=== PATIENT | female | born 1980 | race Caucasian/White ===

== ENCOUNTER 2021-01-10 01:15 | Day surgery (SDC) | payer BC, SELFPAY ==
[2020-12-27 13:59] VITALS: BMI 23.3
--- NOTE | 2021-01-09 20:06 | PM.HPGS ---
History of Present Illness History of Present Illness Consent: Risks, benefits, and alternatives have been discussed and questions answered. Patient agrees to proceed with procedure. Chief complaint: hx of colon polyps Narrative: Lyric Steinberg is a 40 year old female referred for colon caceer screening. She has a hx of colon polyps. Review of Systems Review of Systems: All systems reviewed & are unremarkable except as noted in HPI and below PMFSH Social History Social History Smoking status: Never smoker Tobacco type: cigarettes Alcohol intake: never Substance use type: does not use Living arrangements: with family Spiritual care concerns: No Meds Home Medications and Allergies Home Medications Medication Instructions Recorded Confirmed Type albuterol sulfate 1 inh INHALATION PRN PRN 12/27/20 01/10/21 History escitalopram oxalate 5 mg PO DAILY 12/27/20 01/10/21 History fluticasone propionate [Flovent] 1 puff INHALATION Q12H 12/27/20 01/10/21 History ubrogepant [Ubrelvy] 50 mg PO ONCE PRN 12/27/20 01/10/21 History Allergies Allergy/AdvReac Type Severity Reaction Status Date / Time Penicillins Allergy Unknown Skin Verified 01/10/21 11:38 Reaction OTC COLD MED Allergy Unknown Rash Uncoded 01/10/21 11:38 PSEUDOEPHEDRINE HCL Allergy Unknown Rash Uncoded 01/10/21 11:38 Exam Const: General: alert Orientation/consciousness: patient oriented x3 Resp: Auscultation: clear to auscultation bilaterally Cardio: Rhythm: regular rhythm GI: GI Palp: Yes Soft to palpation and No Tenderness to palpation present (GI) Neuro: General: patient oriented x3 Assessment and Plan Assessment and plan (1) Colon cancer screening: Code(s): Z12.11 - Encounter for screening for malignant neoplasm of colon Status: Acute Assessment and Plan: Colonoscopy with possible biopsy or polypectomy or cautery or injection of substances.
[2021-01-10 11:40] VITALS: BP 113/69; PULSE 110; RESP 16; TEMP 36.7; O2SAT 99
[2021-01-10] MEDS: LACTATED RINGERS 1,000 ML 150 ML IV CONT (11:59)
--- NOTE | 2021-01-10 12:17 | P.PNAN_ITS ---
Anes - Initial Pre Proc Eval Procedure: Operation Date: 01/10/21 12:30 Proposed Procedures p Screening Colonoscopy - Toño Carver MD Date/Time: 01/10/21 12:17 Surgeon: Toño Carver MD Pre Op Diagnosis: hx of colon polyps Patient Data Age: 40 Gender: F Height: 1.55 m Weight: 55 kg Last Vital Signs Temp 36.7 C 01/10/21 11:40 Pulse 110 H 01/10/21 11:40 Resp 16 01/10/21 11:40 BP 113/69 01/10/21 11:40 Pulse Ox 99 01/10/21 11:40 Allergies Allergy/AdvReac Type Severity Reaction Status Date / Time Penicillins Allergy Unknown Skin Verified 01/10/21 11:38 Reaction OTC COLD MED Allergy Unknown Rash Uncoded 01/10/21 11:38 PSEUDOEPHEDRINE HCL Allergy Unknown Rash Uncoded 01/10/21 11:38 Home Medications Medication Instructions Recorded Confirmed Type albuterol sulfate 1 inh INHALATION PRN PRN 12/27/20 01/10/21 History escitalopram oxalate 5 mg PO DAILY 12/27/20 01/10/21 History fluticasone propionate [Flovent] 1 puff INHALATION Q12H 12/27/20 01/10/21 History ubrogepant [Ubrelvy] 50 mg PO ONCE PRN 12/27/20 01/10/21 History Patient hx anesthesia problems: none Family hx anesthesia problems: none Results Review: All pre-operative results and documents have been reviewed as part of the pre-operative evaluation. [facility] Past Medical History Medical History (Updated 01/10/21 @ 12:18 by Kingston Mullen MD) Depression Surgical History Surgical History (Updated 01/10/21 @ 12:18 by Kingston Mullen MD) H/O colonoscopy History of bunionectomy Social History Social History Smoking status: Never smoker Tobacco type: cigarettes Alcohol intake: never Substance use type: does not use Living arrangements: with family Spiritual care concerns: No Anes - Eval Final PreProcedure Day of Procedure 01/10/21 12:17 Patient weight: normal Heart: regular rate and rhythm Lungs: clear to auscultation Airway: Mallampati scale class 1 and other (braces) Neurological: alert and oriented Last oral intake: >/= 8 hours ASA classification: II Emergent: no Anesthetic plan: proceed Anesthesia type and monitoring: general GIVS and standard monitoring Results Review: All pre-operative results and documents have been reviewed as part of the pre-operative evaluation. Informed Consent: The patient's anesthetic plan and its attendant risks and benefits were discussed with the patient/family/POA. Questions were solicited and answers provided to the satisfaction of the patient/family/POA.
[2021-01-10 12:44] VITALS: BP 100/66; PULSE 89; RESP 18; O2SAT 99
[2021-01-10 12:54] VITALS: BP 106/72; PULSE 89; RESP 23; O2SAT 100
[2021-01-10 13:04] VITALS: BP 108/74; PULSE 85; RESP 17; O2SAT 100
== END 2021-01-10 13:15 | disposition home or self-care (01) ==
PROVIDERS: PCP Physician Assistant; Visit Provider Internal Medicine Gastroenterology
PROC: 0DJD8ZZ Inspection of Lower Intestinal Tract, Via Natural or Artificial Opening Endoscopic (ICD-10-PCS; CPT 45378; principal; 2021-01-10 12:30)
DX: Z12.11 Encounter for screening for malignant neoplasm of colon (principal); Z86.010 Personal history of colon polyps; K57.30 Diverticulosis of large intestine without perforation or abscess without bleeding; Z79.02 Long term (current) use of antithrombotics/antiplatelets; Z79.51 Long term (current) use of inhaled steroids; F32.9 Major depressive disorder, single episode, unspecified
CPT/HCPCS: 45378; J2704; J7120

== ENCOUNTER 2021-11-27 14:39 | Outpatient (CLI) | payer BC, SELFPAY ==
--- NOTE | ~2021-11-27 | MR_ITS ---
EXAMINATION: MR brain/brain stem wo/w con DATE: 11/27/2021 15:41 INDICATION: Headaches TECHNIQUE: Magnetic resonance imaging (MRI) of the brain and brainstem was performed without and with 12 mL Multihance intravenous contrast. Sequences included sagittal and axial T1-weighted SE, axial d iffusion-weighted FS SE, axial T2*-weighted GRE, axial T2-weighted FLAIR, and axial T2-weighted FSE. Postcontrast axial and coronal T1-weighted SE was obtained. Apparent diffusion coefficient (ADC) maps were created. COMPARISON: Head CT dated 04/24/2006 FINDINGS: There are no areas of restricted diffusion to suggest acute infarction. No intracranial hemorrhage or abnormal intracranial mass lesion. Single tiny focus of white matter T2 hyperintensity in the right parietal lobe which is within normal limits for age. There are no intraparenchymal signal abnormaliti es seen on the other pulse sequences. The ventricles are symmetric and normal in size. There are no a bnormal extra-axial fluid collections. Flow voids are seen in the cerebral arteries on the T2-weighte d sequences consistent with their expected patency. Visualized orbits and soft tissues are unremarkab le. There are no areas of abnormal enhancement on the post contrast images. IMPRESSION: 1. Single tiny focus of nonspecific white matter T2 hyperintensity in the right parietal lobe which i s within normal limits for age. No acute intracranial process. Reviewed, dictated and finalized at location A. IMPRESSION: 1. Single tiny focus of nonspecific white matter T2 hyperintensity in the right parietal lobe which is within normal limits for age. No acute intracranial pro cess.
== END 2021-11-27 14:40 ==
PROVIDERS: PCP Physician Assistant; Visit Provider Physician Assistant
DX: G44.52 New daily persistent headache (NDPH) (principal); R93.0 Abnormal findings on diagnostic imaging of skull and head, not elsewhere classified
CPT/HCPCS: 70553; A9577

== ENCOUNTER 2022-12-01 11:38 | Outpatient (NON) | payer BC, SELFPAY | END 2022-12-01 11:39 | disposition home or self-care (01) | PROVIDERS: PCP Physician Assistant; Visit Provider Nurse Practitioner | DX: L81.4 Other melanin hyperpigmentation (principal); D48.5 Neoplasm of uncertain behavior of skin | CPT/HCPCS: 88305 ==

== ENCOUNTER 2023-03-08 17:32 | Emergency (ER) | payer BC, SELFPAY ==
--- NOTE | ~2023-03-08 | XR_ITS ---
EXAMINATION: XR chest 2V DATE: 03/08/2023 18:39 INDICATION: Shortness of breath TECHNIQUE: frontal and lateral views of the chest were obtained. COMPARISON: Chest radiograph dated 12/21/2004 FINDINGS: The lungs are clear with no focal airspace opacities, pulmonary edema, pleural effusion or pneumothor ax. The cardiomediastinal silhouette is normal. Visualized bones and soft tissues are unremarkable. IMPRESSION: 1. No acute cardiopulmonary disease. Reviewed, dictated and finalized at location A. ATRIC NURSE PRACTITIONER
--- NOTE | 2023-03-08 17:42 | ED.GENADULT ---
HPI - General Adult General Chief complaint: Shortness of Breath/Dyspnea <Rosa Meeks June, - Last Filed: 03/08/23 17:47> Stated complaint: sent from urgent care - SOB <Rosa Meeks June - Last Filed: 03/08/23 17:47> Time Seen by Provider: 03/08/23 22:23 <Rosa Meeks June, - Last Filed: 03/08/23 17:47> Source: patient <Owen Murphy PA-C - Last Filed: 03/09/23 02:14> Mode of arrival: ambulatory <Owen Murphy PA-C - Last Filed: 03/09/23 02:14> Limitations: no limitations <Owen Murphy PA-C - Last Filed: 03/09/23 02:14> History of Present Illness HPI narrative: Lyric Steinberg is a 43 y/o female with PMHx of Asthma who presents with reports of having a URI near [place] and was placed on Steroids and clindamycin, she states she felt better but then the last few days she has had some increased SOB,unable to get a full breath, increased SOB with exertion and some heavy scracthy pain to her mid chest for a few days that improves with her inhaler but comes right back. She states she has had to use her inhaler about 5 times a day and still feeling SOB. <Rosa Meeks June, Last Filed: 03/08/23 17:47> Related Data Home medications: Home Medications Medication Instructions Recorded Confirmed albuterol sulfate 90 mcg/actuation 1 inh inhalation PRN PRN Shortness 12/27/20 01/10/21 aerosol inhaler Of Breath escitalopram oxalate 5 mg tablet 5 mg PO DAILY 12/27/20 01/10/21 fluticasone propionate 110 1 puff inhalation Q12H 12/27/20 01/10/21 mcg/actuation HFA aerosol inhaler ubrogepant 50 mg tablet (Ubrelvy) 50 mg PO ONCE PRN Migraine Headache 12/27/20 01/10/21 <Rosa Meeks June, - Last Filed: 03/08/23 17:47> Allergies/adverse reactions: Allergies Allergy/AdvReac Type Severity Reaction Status Date / Time Penicillins Allergy Unknown Skin Verified 01/10/21 11:38 Reaction OTC COLD MED Allergy Unknown Rash Uncoded 01/10/21 11:38 PSEUDOEPHEDRINE HCL Allergy Unknown Rash Uncoded 01/10/21 11:38 <Roas ReguloMay June, - Last Filed: 03/08/23 17:47> Review of Systems Review of Systems: All systems as dictated in HPI <Owen Murphy PA-C - Last Filed: 03/09/23 02:14> PMFSH Past Medical History Medical History: Medical History (Updated 03/09/23 @ 00:06 by Kelsie Contreras) Depression <Rosa Meeks June, - Last Filed: 03/08/23 17:47> Surgical History Surgical History: Surgical History (Updated 01/10/21 @ 12:18 by Kingston Mullen MD) H/O colonoscopy History of bunionectomy <Rosa J. June, - Last Filed: 03/08/23 17:47> Social History Social History: Social History Smoking status: Never smoker Tobacco type: cigarettes Alcohol intake: never Substance use type: does not use Living arrangements: with family Spiritual care concerns: No <Rosa Constantino June, Last Filed: 03/08/23 17:47> Exam Narrative: GENERAL: Well-appearing, well-nourished, and in no acute distress. HEAD: Normocephalic, atraumatic. EYES: PERRLA and EOMI. ENT: Nares clear, no rhinorrhea or epistaxis. Mucous membranes moist. Oropharynx without tonsillar hypertrophy exudate or other lesions. NECK: Supple. No adenopathy or masses. CHEST: No respiratory distress. Clear to auscultation. No wheezes rales or rhonchi HEART: Regular rate and rhythm. No murmur heard. Normal peripheral pulses. ABDOMEN: Soft, nontender, nondistended, normal active bowel sounds. MSK: Normal range of motion. No edema. SKIN: Warm, dry, no rash. NEURO: Alert and oriented x3. No focal deficits. PSYCH: Normal mood and affect. <Owen Murphy PA-C - Last Filed: 03/09/23 02:14> Course Vital Signs Vital signs: Vital Signs Temperature 97.7 F 03/08/23 17:58 Pulse Rate 78 03/08/23 17:58 Respiratory Rate 15 03/08/23 17:58 Blood Pressure 114/75 03/08/23 17:58 Pulse Oximetry 100 03/08/23 17:58 Oxy
--- NOTE | 2023-03-08 17:47 | ECG_ITS ---
Measurements Intervals [place] Rate: 60 P: 31 AR: 127 QRS: 52 QRSD: 71 T: 52 QT: 368 QTc: 369 Interpretive Statements SINUS RHYTHM LOW QRS VOLTAGE IN PRECORDIAL LEADS CANNOT RULE OUT SEPTAL INFARCT, AGE INDETERMINATE ABNORMAL ECG NO PREVIOUS ECG AVAILABLE FOR COMPARISON Electronically Signed On 03-09-2023 5:53:18 [employer]BER [employer]ZER by Michael Tellez D.O.
[2023-03-08 17:58] VITALS: BP 114/75; PULSE 78; RESP 15; TEMP 36.5; O2SAT 100
[2023-03-08 21:29] LABS: Basophils Percent Auto 0.7 % (0.2-1.2); Eosinophils Absolute Auto 0.1 K/mm3 (0-0.3); Eosinophils Percent Auto 2.2 % (0-4.4); Hematocrit 39.7 % (37.0-47.0); Hemoglobin 12.6 g/dL (12.0-15.0); Immature Granulocyte Absolute 0.03 K/mm3 (0.00-0.031); Immature Granulocyte Percent A 0.5 % (0-0.5); Lymphocytes Absolute Auto 1.91 K/mm3 (0.9-3.2); Mean Corpuscular HGB Conc 31.7 g/dl (32-36); Mean Corpuscular Hemoglobin 29.3 pg (26-34); Mean Corpuscular Volume 92.3 fl (80-100); Mean Platelet Volume 10.4 fl (7.4-10.4); Monocytes Absolute Auto 0.5 K/mm3 (0.1-0.6); Monocytes Percent Auto 8.5 % (2.6-8.5); Neutrophils Absolute Auto 3.2 K/mm3 (1.3-6.7); Neutrophils Percent Auto 55.1 % (45.5-73.1); Platelet Count Result 253 k/mm3 (150-375); White Blood Count 5.8 K/mm3 (4.5-10.0)
[2023-03-08 21:39] LABS: Magnesium 1.9 mg/dL (1.6-2.3)
[2023-03-08 21:39] LABS: Appearance Urine Clear (Clear); Bilirubin Urine Negative (Negative); Blood Urine Negative (Negative); Color Urine Yellow (Yellow); Glucose Urine UA Negative (Negative); Ketones Urine Trace mg/dL (Negative); Leukocyte Esterase Ur Negative LEU/UL (Negative); Nitrate Urine Negative (Negative); Protein Urine Negative (Negative); Specific Grav Ur 1.013 (1.001-1.035); Urobilinogen Urine 0.2 mg/dL (<2.0)
[2023-03-08 21:43] LABS: Alanine Aminotransferase 17 U/L (6-35); Albumin Level 4.5 g/dL (3.5-5.1); Alkaline Phosphatase 43 U/L (38-126); Anion Gap 8 mmol/L (8-16); Aspartate Amino Transferase 21 U/L (14-36); Bilirubin,Total 0.6 mg/dL (0.2-1.3); Blood Urea Nitrogen 13 mg/dL (7-17); Calcium 9.4 mg/dL (8.4-10.2); Carbon Dioxide 26 mmol/L (22-30); Chloride 102 mmol/L (98-107); Estimated CRCL calculation 76 ml/min; Estimated Glomerular Filt Rate > 60; Glucose 82 mg/dL (65-110); Potassium 3.8 mmol/L (3.4-5.0); Sodium 136 mmol/L (137-145)
[2023-03-08 21:51] LABS: Add Urine Microscopic? NO
[2023-03-08 21:51] LABS: NT Pro B Type Natriuretic Pept 35 pg/mL (19.9-100); Troponin I < 0.012 ng/mL (0.000-0.034)
[2023-03-08 22:05] LABS: Influenza A QL RT-PCR Negative (Negative); Influenza B QL RT-PCR Negative (Negative); RSV RNA, RT-PCR Negative (Negative); SARS-CoV-2 RNA PCR Negative (Negative)
[2023-03-08 22:12] LABS: D Dimer 0.29 ug/mL (<0.48)
[2023-03-08 22:18] VITALS: BP 120/71; PULSE 70; RESP 18; O2SAT 98
--- NOTE | 2023-03-08 22:59 | PC.NURSE ---
Ambulation assessment with oxygen was successful. O2 sats 98-99%. Pt did not complain of SOB/pain. EDP made aware.
[2023-03-08 23:00] VITALS: BP 128/81; PULSE 70; RESP 20; O2SAT 99
== END 2023-03-08 23:05 | disposition home or self-care (01) ==
PROVIDERS: Nurse Practitioner Family; Emergency Provider Physician Assistant; PCP Physician Assistant
DX: R06.02 Shortness of breath (principal); Z20.822 Contact with and (suspected) exposure to COVID-19; F32.A Depression, unspecified; R94.31 Abnormal electrocardiogram [ECG] [EKG]
CPT/HCPCS: 36415; 71046; 80053; 81003; 81025; 83605; 83735; 83880; 84484; 85025; 85380; 87637; 93005; 99284

== ENCOUNTER 2023-11-06 18:01 | Emergency (ER) | payer OTHER, SELFPAY ==
[2023-11-06 18:17] VITALS: BP 122/71; PULSE 96; RESP 16; TEMP 36.5; O2SAT 100
--- NOTE | 2023-11-06 18:20 | ED.FEMALEGU ---
HPI - Female Genitourinary General Chief complaint: Urogenital-Female Stated complaint: UTI SYMPTOMS Time Seen by Provider: 11/06/23 18:20 Source: patient, RN notes reviewed and old records reviewed Mode of arrival: ambulatory Limitations: no limitations History of Present Illness HPI Narrative: 43-year-old female presents to the [facility] with urinary symptoms. Patient reports that since this morning has had progressively worsening urinary symptoms. Reports frequency, urgency, burning. Patient also reports suprapubic discomfort to more of a burning sensation Denies any nausea vomiting. Denies fevers. Denies any generalized abdominal pain. No CVA tenderness Onset (ago): hour(s) Related Data Home Medications Medication Instructions Recorded Confirmed albuterol sulfate 90 mcg/actuation 1 inh inhalation PRN PRN Shortness 12/27/20 07/30/23 aerosol inhaler Of Breath levonorgestrel 17.5 mcg/24 hr (up 1 device intrauterine ONCE 07/30/23 07/30/23 to 5 yrs) 19.5mg intrauterine device (Kyleena) Allergies Allergy/AdvReac Type Severity Reaction Status Date / Time Penicillins Allergy Unknown Skin Verified 07/30/23 10:15 Reaction OTC COLD MED Allergy Unknown Rash Uncoded 07/30/23 10:15 PSEUDOEPHEDRINE HCL Allergy Unknown Rash Uncoded 07/30/23 10:15 Review of Systems Review of Systems: All systems reviewed & are unremarkable except as noted in HPI and below Constitutional: Constitutional: Reports no additional constitutional complaints Eyes: Eyes: Reports no additional eye complaints ENT: Reports system reviewed and no additional complaints, except as documented Cardiovascular: Cardiovascular: Reports no additional cardiovascular complaints, Denies chest pain and Denies dyspnea Respiratory: Respiratory: Reports no additional respiratory complaints, Denies chest congestion, Denies cough and Denies dyspnea Gastrointestinal: Gastrointestinal: Reports no additional gastrointestinal complaints, Denies abdominal pain, Denies nausea and Denies vomiting Genitourinary: Genitourinary: Reports as per HPI Musculoskeletal: Musculoskeletal: Reports no additional musculoskeletal complaints Integumentary/Breasts: Skin/Breast: Reports system reviewed and no additional complaints, except as docu Neurologic: Reports system reviewed and no additional complaints, except as documented Psychiatric: Psychiatric: Reports no additional psychiatric complaints Allergic/Immunologic: Allergic/Immunologic: Reports no additional allergic/immunologic complaints PMFSH Past Medical History Medical History Asthma Depression Screening mammogram for breast cancer Surgical History Surgical History H/O colonoscopy History of bunionectomy Family History Family History Other No problems noted. Mother Heart disease Social History Social History Smoking status: Never smoker Alcohol intake: current Substance use type: does not use Do You Feel Safe in your Home?: Yes Lack of Transportation: No Lack of Food: Never True Current Housing: I Have Housing Concerned About Future Housing: No Difficulty Paying Gas/Electric Bills: No Difficulty Paying for Meds: No Currently Unemployed: No Education: Associate Degree Difficulty w/ Childcare or Family Care: No Living arrangements: with family Spiritual care concerns: No Comments At the time of my signature, I reviewed and agree with the nursing past medical, surgical, social, and family history. There is no relevant family history pertinent to the patient complaint. Exam Const: General: cooperative, healthy appearing, comfortable, no acute distress, well developed, alert and well nourished Nutritional Appearance: well nourished [place]
[2023-11-06 18:28] LABS: EDUAAPPEAR Clots; EDUABILI 2+ (Negative); EDUABLOOD 3+ (Negative); EDUACOLOR1 Dark; EDUAGLUCOSE Negative (Negative); EDUAKETONE 1+ (Negative); EDUALEUKO 3+ (Negative); EDUANITRATE Positive (Negative); EDUAPH 5.5; EDUAPROTEIN 3+ (Negative); EDUASPGRAVITY 1.025
== END 2023-11-06 18:38 | disposition home or self-care (01) ==
PROVIDERS: Emergency Provider Nurse Practitioner; PCP Physician Assistant
DX: N39.0 Urinary tract infection, site not specified (principal); B96.89 Other specified bacterial agents as the cause of diseases classified elsewhere; J45.909 Unspecified asthma, uncomplicated
CPT/HCPCS: 81003; 87077; 87086; 87088; 87186; 99213; G0463

== ENCOUNTER 2024-01-05 09:04 | Outpatient (CLI) | payer OTHER, SELFPAY ==
--- NOTE | ~2024-01-05 | XR_ITS ---
[id number] Ordering provider: Markell Tavera, DC CCST History: . No injury neck pain with left arm tingling for 3 weeks . Comparison: None. FINDINGS: VERTEBRAL BODIES: Normal height and alignment. No visible fracture or subluxation. The dens is intact . DISK SPACES: Well maintained. PARASPINOUS SOFT TISSUES: No prevertebral soft tissue swelling. IMPRESSION: No acute osseous abnormality cervical spine. Reviewed, dictated and finalized at location A. CHER LARD
--- NOTE | ~2024-01-05 | XR_ITS ---
3 VIEWS LUMBAR SPINE Ordering provider: Markell Tavera, DC CCST History: . Headache, neck pain, back pain no injury . Comparison: None. FINDINGS: VERTEBRAL BODIES: No visible fracture or subluxation. Mild levoscoliosis which may be positional. DISK SPACES: Normal. Facet joint disease at the level of L5-S1. SOFT TISSUES: Normal. IMPRESSION: No acute osseous abnormality lumbar spine. Reviewed, dictated and finalized at location A. O PRINT SPECIALIST
--- NOTE | ~2024-01-05 | XR_ITS ---
3 VIEWS THORACIC SPINE Ordering provider: Markell Tavera, DC CCST History: . Headache, neck pain, back pain no injury . Comparison: None. FINDINGS: VERTEBRAL BODIES: Normal height and alignment. No visible fracture or subluxation. DISK SPACES: Normal. SOFT TISSUES: Normal. IMPRESSION: No acute osseous abnormality of the thoracic spine. Reviewed, dictated and finalized at location A. NESS CENTER ATTENDANT
== END 2024-01-05 09:05 | disposition home or self-care (01) ==
PROVIDERS: PCP Chiropractor; Visit Provider Chiropractor
DX: R51.9 Headache, unspecified (principal); M54.2 Cervicalgia; M54.50 Low back pain, unspecified
CPT/HCPCS: 72040; 72070; 72100

== ENCOUNTER 2024-09-22 11:16 | Outpatient (CLI) | payer OTHER, SELFPAY ==
--- OUTSIDE RECORDS SUMMARY | 2024-09-22 11:22 | XMS_ITS | Data Portability ---
Author Organization [facility], Main Office Address [address] [place] [address] Assessment Encounter Date Assessment Date Assessment LastModified by Organization Details LastModified Time 10/16/2022 10/16/2022 colonoscopy 2020. repeat 5 years [email or web address] Not available 10/16/2022 09:38:09 Plan of Treatment Reminders Order Date Submit Date Provider Last Modified By Organization Details Last Modified Time Details Appointments None recorded . Lab CMP, serum or plasma 023 10/17/19 23 [email or web address] [facility], [address] [place] [address], [address], 3 14:10:27 CBC w/ auto diff 023 10/17/19 23 [email or web address] [facility], [address] [place] [address], [address], 3 14:10:27 TSH + free T4, serum 023 10/17/19 23 [email or web address] [facility], [address] [place] [address], [address], 3 14:10:27 lipid panel, serum 023 10/17/19 23 [email or web address] [facility], [address] [place] [address], [address], 3 14:10:26 HbA1c (hemoglo bin A1c), blood 023 10/17/19 23 [email or web address] [facility], [address] [place] [address], [address], 3 14:10:27 Referral None recorded . Procedures None recorded . Surgeries None recorded . Imaging None recorded . Medication Orders None recorded . Patient TargetsNo targets recorded. Patient InstructionsNo instructions recorded. Reason for Referral None Reported. Results Created Date Observation Date Name Description Value Unit Range Abnormal Flag Note LastModifiedBy Organization Detail LastModifiedTime 11/29/1911/29/2020 HEMOG LOBIN A1C hemoglobin A1C 5.4 % 4.8-5. 6 Predi abete s: 5.7 - 6.4 Diabe anne-marie: >6.4 Glyce pepper contr ol for adult s with diabe anne-marie: <7.0 Not Available [facility] ([facility]) [address] [facility], [place], [address], 11/29/2020 11:37:56 11/29/19 21 11/29/2020 LIPID PANEL W/ CHOL/ HDL RATIO cholesterol, total 174 mg/dL 100-19 9 Not Available [facility] ([facility]) [address] [place], [address], 11/29/2020 11:37:56 11/29/19 21 11/29/2020 LIPID PANEL W/ CHOL/ HDL RATIO triglyceride s 43 mg/dL 0-149 Not Available [facility] ([facility]) [address] [place], [address], 11/29/2020 11:37:56 11/29/19 21 11/29/2020 LIPID PANEL W/ CHOL/ HDL RATIO HDL cholesterol 64 mg/dL >39 Not Available [facility] ([facility]) [address] [place], [address], 11/29/2020 11:37:56 11/29/19 21 11/29/2020 LIPID PANEL W/ CHOL/ HDL RATIO VLDL cholesterol kristyn 9 mg/dL 5-40 Not Available [facility] ([facility]) [address] [place], [address], 11/29/2020 11:37:56 11/29/19 21 11/29/2020 LIPID PANEL W/ CHOL/ HDL RATIO LDL chol calc ([facility]) 101 mg/dL 0-99 above high normal Not Available [facility] ([facility]) [address] [place], [address], 11/29/2020 11:37:56 11/29/19 21 11/29/2020 LIPID PANEL W/ CHOL/ HDL RATIO comment: cloth bleaching range back tender Not Available [facility] ([facility]) [address] [place], [address], 11/29/2020 11:37:56 11/29/19 21 11/29/2020 LIPID PANEL W/ CHOL/ HDL RATIO T. chol/HDL ratio 2.7 ratio 0.0-4. 4 T. Chol/ HDL Ratio Men Women 1/2 Avg.R isk 3.4 3.3 Avg.R isk 5.0 4.4 2X Avg.R isk 9.6 7.1 3X Avg.R isk 23.4 11.0 Not Available [facility] ([facility]) [address] [place], [address], 11/29/2020 11:37:56 11/29/19 21 11/29/2020 UA WITH CULTU RE REFLE X specific gravity 1.026 1.005- 1.030 Not Available [facility] ([facility]) [address] [place], [address], 11/29/2020 11:37:55 11/29/19 21 11/29/2020 UA WITH CULTU RE REFLE X pH 6.5 5.0-7. 5 Not Available [facility] ([facility]) [address] [place], [address], 11/29/2020 11:37:55 11/29/19 21 11/29/2020 UA WITH CULTU RE REFLE X urine-color yellow yellow Not Available [facility] ([facility]) [address] [place], [address], 11/29/2020 11:37:55 11/29/19 21 11/29/2020 UA WITH CULTU RE REFLE X appearance clear clear Not Available [facility] ([facility]) [address] [facility], [place], [address], 11/29/2020 11:37:55 11/29/19 21 11/29/2020 UA WITH CULTU RE REFLE X WBC esterase negati ve negati ve Not Available [facility] ([facility]) [address] [facility], [place], [address], 11/29/2020 11:37:55 11/29/19 21 11/29/2020 UA WITH CULTU RE REFLE X protein negati ve negati ve/tra ce Not Available [facility] ([facility]) [address] [facility], [place], [address], 11/29/2020 11:37:55 11/29/19 21 11/29/2020 UA WITH CULTU RE REFLE X glucose negati ve negati ve Not Available [facility] ([facility]) [address] [facility], [place], [address], 11/29/2020 11:37:55 11/29/19 21 11/29/2020 UA WITH CULTU RE REFLE X ketones negati ve negati ve Not Available [facility] ([facility]) [address] [facility], [place], [address], 11/29/2020 11:37:55 11/29/19 21 11/29/2020 UA WITH CULTU RE REFLE X occult blood negati ve negati ve Not Available [facility] ([facility]) [address] [facility], [place], [address], 11/29/2020 11:37:55 11/29/19 21 11/29/2020 UA WITH CULTU RE REFLE X bilirubin negati ve negati ve Not Available [facility] ([facility]) [address] [facility], [place], [address], 11/29/2020 11:37:55 11/29/19 21 11/29/2020 UA WITH CULTU RE REFLE X urobilinogen ,semi-qn 0.2 mg/dL 0.2-1. 0 Not Available [facility] ([facility]) [address] [facility], [place], [address], 11/29/2020 11:37:55 11/29/19 21 11/29/2020 UA WITH CULTU RE REFLE X nitrite, urine negati ve negati ve Not Available [facility] ([facility]) [address] [facility], [place], [address], 11/29/2020 11:37:55 11/29/19 21 11/29/2020 UA WITH CULTU RE REFLE X microscopic examination commen t Micro scopi c not indic ated and not perfo rmed. Not Available [facility] ([facility]) [address] [facility], [place], [address], 11/29/2020 11:37:55 11/29/19 21 11/29/2020 UA WITH CULTU RE REFLE X urinalysis reflex commen t This speci men will not refle x to a Urine Cultu re. Not Available [facility] ([facility]) [address] [facility], [place], [address], 11/29/2020 11:37:55 11/29/19 21 11/29/2020 CBC WITH DIFFE RENTI AL/PL ATELE T WBC 7.1 x10e3 /uL 3.4-10 .8 Not Available [facility] ([facility]) [address] [facility], [place], [address], 11/29/2020 11:37:55 11/29/19 21 11/29/2020 CBC WITH DIFFE RENTI AL/PL ATELE T RBC 4.24 x10e6 /uL 3.77-5 .28 Not Available [facility] ([facility]) [address] [facility], [place], [address], 11/29/2020 11:37:55 11/29/19 21 11/29/2020 CBC WITH DIFFE RENTI AL/PL ATELE T hemoglobin 12.5 g/dL 11.1-1 5.9 Not Available [facility] ([facility]) [address] [facility], [place], [address], 11/29/2020 11:37:55 11/29/19 21 11/29/2020 CBC WITH DIFFE RENTI AL/PL ATELE T hematocrit 38.8 % 34.0-4 6.6 Not Available [facility] ([facility]) [address] [facility], [place], [address], 11/29/2020 11:37:55 11/29/19 21 11/29/2020 CBC WITH DIFFE RENTI AL/PL ATELE T MCV 92 fL 79-97 Not Available [facility] ([facility]) [address] [facility], [place], [address], 11/29/2020 11:37:55 11/29/19 21 11/29/2020 CBC WITH DIFFE RENTI AL/PL ATELE T MCH 29.5 pg 26.6-3 3.0 Not Available [facility] ([facility]) [address] [facility], [place], [address], 11/29/2020 11:37:55 11/29/19 21 11/29/2020 CBC WITH DIFFE RENTI AL/PL ATELE T MCHC 32.2 g/dL 31.5-3 5.7 Not Available [facility] ([facility]) [address] [place], [address], 11/29/2020 11:37:55 11/29/19 21 11/29/2020 CBC WITH DIFFE RENTI AL/PL ATELE T RDW 12.4 % 11.7-1 5.4 Not Available [facility] ([facility]) [address] [facility], [place], [address], 11/29/2020 11:37:55 11/29/19 21 11/29/2020 CBC WITH DIFFE RENTI AL/PL ATELE T platelets 201 x10e3 /uL 150-45 0 Not Available [facility] ([facility]) [address] [facility], [place], [address], 11/29/2020 11:37:55 11/29/19 21 11/29/2020 CBC WITH DIFFE RENTI AL/PL ATELE T neutrophils 71 % not estab. Not Available [facility] ([facility]) [address] [facility], [place], [address], 11/29/2020 11:37:55 11/29/19 21 11/29/2020 CBC WITH DIFFE RENTI AL/PL ATELE T lymphs 17 % not estab. Not Available [facility] ([facility]) [address] [facility], [place], [address], 11/29/2020 11:37:55 11/29/19 21 11/29/2020 CBC WITH DIFFE RENTI AL/PL ATELE T monocytes 8 % not estab. Not Available [facility] ([facility]) [address] [facility], [place], [address], 11/29/2020 11:37:55 11/29/19 21 11/29/2020 CBC WITH DIFFE RENTI AL/PL ATELE T eos 3 % not estab. Not Available [facility] ([facility]) [address] [facility], [place], [address], 11/29/2020 11:37:55 11/29/19 21 11/29/2020 CBC WITH DIFFE RENTI AL/PL ATELE T basos 1 % not estab. Not Available [facility] ([facility]) [address] [facility], [place], [address], 11/29/2020 11:37:55 11/29/19 21 11/29/2020 CBC WITH DIFFE RENTI AL/PL ATELE T immature cells cloth bleaching range back tender Not Available [facility] ([facility]) [address] [place], [address], 11/29/2020 11:37:55 11/29/19 21 11/29/2020 CBC WITH DIFFE RENTI AL/PL ATELE T neutrophils (absolute) 5.1 x10e3 /uL 1.4-7. 0 Not Available [facility] ([facility]) [address] [place], [address], 11/29/2020 11:37:55 11/29/19 21 11/29/2020 CBC WITH DIFFE RENTI AL/PL ATELE T lymphs (absolute) 1.2 x10e3 /uL 0.7-3. 1 Not Available [facility] ([facility]) [address] [place], [address], 11/29/2020 11:37:55 11/29/19 21 11/29/2020 CBC WITH DIFFE RENTI AL/PL ATELE T monocytes(ab solute) 0.5 x10e3 /uL 0.1-0. 9 Not Available [facility] ([facility]) [address] [place], [address], 11/29/2020 11:37:55 11/29/19 21 11/29/2020 CBC WITH DIFFE RENTI AL/PL ATELE T eos (absolute) 0.2 x10e3 /uL 0.0-0. 4 Not Available [facility] ([facility]) [address] [place], [address], 11/29/2020 11:37:55 11/29/19 21 11/29/2020 CBC WITH DIFFE RENTI AL/PL ATELE T baso (absolute) 0.0 x10e3 /uL 0.0-0. 2 Not Available [facility] ([facility]) [address] [facility], [place], [address], 11/29/2020 11:37:55 11/29/19 21 11/29/2020 CBC WITH DIFFE RENTI AL/PL ATELE T immature granulocytes 0 % not estab. Not Available [facility] ([facility]) [address] [facility], [place], [address], 11/29/2020 11:37:55 11/29/19 21 11/29/2020 CBC WITH DIFFE RENTI AL/PL ATELE T immature grans (abs) 0.0 x10e3 /uL 0.0-0. 1 Not Available [facility] ([facility]) [address] [facility], [place], [address], 11/29/2020 11:37:55 11/29/19 21 11/29/2020 CBC WITH DIFFE RENTI AL/PL ATELE T NRBC cloth bleaching range back tender Not Available [facility] ([facility]) [address] [facility], [place], [address], 11/29/2020 11:37:55 11/29/19 21 11/29/2020 CBC WITH DIFFE RENTI AL/PL ATELE T hematology comments: cloth bleaching range back tender Not Available [facility] ([facility]) [address] [place], [address], 11/29/2020 11:37:55 11/29/19 21 11/29/2020 TSH+F REE T4 TSH 2.740 uIU/m L 0.450- 4.500 Not Available [facility] ([facility]) [address] [place], [address], 11/29/2020 11:37:54 11/29/19 21 11/29/2020 TSH+F REE T4 T4,free(dire ct) 1.15 NG/dL 0.82-1 .77 Not Available [facility] ([facility]) [address] [place], [address], 11/29/2020 11:37:54 11/29/19 21 11/29/2020 CMP14 +EGFR glucose 90 mg/dL 65-99 Not Available [facility] ([facility]) [address] [facility], [place], [address], 11/29/2020 11:37:53 11/29/19 21 11/29/2020 CMP14 +EGFR BUN 19 mg/dL 6-24 Not Available [facility] ([facility]) [address] [facility], [place], [address], 11/29/2020 11:37:53 11/29/19 21 11/29/2020 CMP14 +EGFR creatinine 0.74 mg/dL 0.57-1 .00 Not Available [facility] ([facility]) [address] [facility], [place], [address], 11/29/2020 11:37:53 11/29/19 21 11/29/2020 CMP14 +EGFR eGFR if nonafricn AM 100 mL/mi n/1.7 3 >59 Not Available [facility] ([facility]) [address] [facility], [place], [address], 11/29/2020 11:37:53 11/29/19 21 11/29/2020 CMP14 +EGFR eGFR if africn AM 116 mL/mi n/1.7 3 >59 Lab kylah curre ntly repor ts eGFR in compl iance with the curre nt recom menda tions of the [facility] ation . [facility] will updat e repor ting as new guide lines are publi shed from the NKF-A SN Task force . Not Available [facility] ([facility]) [address] [facility], [place], [address], 11/29/2020 11:37:53 11/29/19 21 11/29/2020 CMP14 +EGFR BUN/creatini ne ratio 26 9-23 above high normal Not Available [facility] ([facility]) [address] [facility], [place], [address], 11/29/2020 11:37:53 11/29/19 21 11/29/2020 CMP14 +EGFR sodium 142 mmol/ L 134-14 4 Not Available [facility] ([facility]) [address] [facility], [place], [address], 11/29/2020 11:37:53 11/29/19 21 11/29/2020 CMP14 +EGFR potassium 4.4 mmol/ L 3.5-5. 2 Not Available [facility] ([facility]) [address] [place], [address], 11/29/2020 11:37:53 11/29/19 21 11/29/2020 CMP14 +EGFR chloride 107 mmol/ L 96-106 above high normal Not Available [facility] ([facility]) [address] [place], [address], 11/29/2020 11:37:53 11/29/19 21 11/29/2020 CMP14 +EGFR carbon dioxide, total 24 mmol/ L 20-29 Not Available [facility] ([facility]) [address] [facility], [place], [address], 11/29/2020 11:37:53 11/29/19 21 11/29/2020 CMP14 +EGFR calcium 9.2 mg/dL 8.7-10 .2 Not Available [facility] ([facility]) [address] [place], [address], 11/29/2020 11:37:53 11/29/19 21 11/29/2020 CMP14 +EGFR protein, total 6.6 g/dL 6.0-8. 5 Not Available [facility] ([facility]) [address] [place], [address], 11/29/2020 11:37:53 11/29/19 21 11/29/2020 CMP14 +EGFR albumin 4.3 g/dL 3.8-4. 8 Not Available [facility] ([facility]) [address] [place], [address], 11/29/2020 11:37:53 11/29/19 21 11/29/2020 CMP14 +EGFR globulin, total 2.3 g/dL 1.5-4. 5 Not Available [facility] ([facility]) [address] [place], [address], 11/29/2020 11:37:53 11/29/19 21 11/29/2020 CMP14 +EGFR A/G ratio 1.9 1.2-2. 2 Not Available [facility] ([facility]) [address] [place], [address], 11/29/2020 11:37:53 11/29/19 21 11/29/2020 CMP14 +EGFR bilirubin, total 0.4 mg/dL 0.0-1. 2 Not Available [facility] ([facility]) [address] [place], [address], 11/29/2020 11:37:53 11/29/19 21 11/29/2020 CMP14 +EGFR alkaline phosphatase 37 IU/L 44-121 below low normal Ple ase note refer ence inter delaney walton e Not Available [facility] ([facility]) [address] [place], [address], 11/29/2020 11:37:53 11/29/19 21 11/29/2020 CMP14 +EGFR AST (SGOT) 14 IU/L 0-40 Not Available [facility] ([facility]) [address] [place], [address], 11/29/2020 11:37:53 11/29/19 21 11/29/2020 CMP14 +EGFR ALT (SGPT) 10 IU/L 0-32 Not Available [facility] ([facility]) [address] [place], [address], 11/29/2020 11:37:53 01/11/20 21 01/10/2021 colon oscop y proce dure (PROC ) No observ ation record ed. [id number] Toño Carver MD [address], [place], [address], 04/29/2022 17:35:56 11/29/19 22 11/27/2021 MRI, brain , w/wo contr ast No observ ation record ed. [id number] [facility] [address], [place], [address], 04/29/2022 17:35:56 03/10/19 24 03/08/2023 XR, chest , 2 view No observ ation record ed. [address], [place], [address], 03/10/2023 15:54:34 Result Notes None recorded. Problems Name Problem SNOMED Code Status Onset Date Resolution Date Notes Provider Name and Address Organization Details Recorded Time Asthma 658834648 Active Not Available [facility] 3 17:33:31 Wound of skin 975946293 Active Not Available [facility] 3 17:33:31 Cough 44191861 Active Not Available [facility] 3 17:33:32 Upper respirator y infection 59398146 Active Not Available [facility] 3 17:33:32 Psoriasis 3546877 Active Not Available [facility] 3 17:33:32 Acute exacerbati on of chronic obstructiv e pulmonary disease 009510209 Active 2021 Not Available [facility] 3 17:33:31 Reactive airway disease 711778533350 Active 2021 Not Available [facility] 3 17:33:32 Migraine 46472351 Active 2021 Not Available [facility] 3 17:33:32 Mild major depression 29584614 Active 08/11/ 2022 Not Available [facility] 3 17:33:32 New daily persistent headache 6951993301441 05 Active 2021 Not Available [facility] 3 17:33:31 Problem Notes None recorded. Procedures Surgical History Date Name Laterality Status Provider Name and Address Organization Details Recorded Time 06/16/19 17 other completed Not Available [facility] 3 17:31:32 01/19/20 15 Date of Last Colonoscopy completed Not Available [facility] 04/29/2022 17:31:30 01/19/20 15 Colposcopy completed Not Available [facility] 3 17:31:32 other completed Not Available [facility] 03/2022 17:31:32 Imaging Results None recorded. Procedure Notes None recorded. Medical Equipment None Reported. Allergies Allergen ID Allergen Name Allergen Category Reaction Reaction Severity Criticality Documentation Date Start Date Code Code System Note Provider Name and Address Organization Details Recorded Time 33550 Sudafed medicatio n rash severe Not available 04/29/202247414 2 RxNorm Not Available [facility] 3 17:35:50 11014 Product containin g penicilli n (product) medicatio n Not available Not available Not available 04/29/2022 37071 8001 SNOMED was young at react ion Not Available [facility] 3 17:35:50 Medications Name Sig Start Date Stop Date Status Note LastModified by Organization Details LastModified Time cyclobenzap rine 10 mg tablet active Not Available Not Available Not Available ketoconazol e 2 % shampoo SHAMPOO WITH A SMALL AMOUNT TO THE AFFECTED AREA EVERY OTHER DAY active Not Available Not Available No t Available azithromyci n 250 mg tablet 10/09 completed Not Available Not Available Not Available clarithromy adrien 500 mg tablet TK 1 T PO Q 12 H 07/10 completed Not Available Not Available Not Available ondansetron HCl 4 mg tablet 07/10 completed Not Available Not Available Not Available clindamycin HCl 150 mg capsule TAKE ONE CAPSULE BY MOUTH FOUR TIMES DAILY UNTIL ALL TAKEN 10/15 completed Not Available Not Available Not Available valacyclovi r 500 mg tablet active Not Available Not Available Not Available triamcinolo ne acetonide 0.1 % topical cream applys twice a day 07/12 completed Not Available Not Available Not Available neomycin-po lymyxin-dex ameth 3.5 mg/mL-10,00 0 unit/mL-0.1 % eye drops active Not Available Not Available Not Available triamcinolo ne acetonide 0.1 % topical ointment APPLY SMALL AMOUNT TOPICALLY TO THE AFFECTED AREA TWICE DAILY. DO NOT USE MORE THAN 2 WEEKS active Not Available Not Available No t Available Advair Diskus 250 mcg-50 mcg/dose powder for inhalation Inhale 1 puff twice a day by inhalatio n route. 2022 active Not Available Not Available Not Avai lable mupirocin calcium 2 % topical cream applys twice a day. 07/12 completed Not Available Not Available Not Available azelastine 137 mcg (0.1 %) nasal spray USE 2 SPRAYS IN EACH NOSTRIL TWICE DAILY active Not Available Not Available No t Available methylpredn isolone 4 mg tablets in a dose pack FOLLOW PACKAGE DIRECTION S 10/15 completed Not Available Not Available Not Available albuterol sulfate HFA 90 mcg/actuati on aerosol inhaler INHALE 2 PUFFS BY MOUTH EVERY 4 TO 6 HOURS NEEDED active Not Available Not Available No t Available doxycycline hyclate 100 mg tablet TAKE 1 TABLET BY MOUTH TWICE DAILY UNTIL ALL TAKEN 10/15 completed Not Available Not Available Not Available Lexapro 10 mg tablet Take 1 tablet every day by oral route. 2022 active Not Available Not Available Not Avai lable Vigamox 0.5 % eye drops active Not Available Not Available Not Available escitalopra m 5 mg tablet TAKE 1 TABLET BY MOUTH EVERY DAY IN THE EVENING 10/10 completed Not Available Not Available Not Available Zyrtec takes daily 2014 active Not Available Not Available Not Avai lable Virtussin AC 10 mg-100 mg/5 mL oral liquid TK 10 ML PO Q 4 H PRN 07/10 completed Not Available Not Available Not Available Enstilar 0.005 %-0.064 % topical foam active Not Available Not Available Not Available Ubrelvy active Not Available Not Avail able Not Available Nurtec ODT 75 mg disintegrat ing tablet TAKE 1 TABLET BY MOUTH AT ONSET OF MIGRAINE. MAX OF 1 TABLET IN 24 HOURS 10/16 completed Not Available Not Available Not Available Qulipta 60 mg tablet TAKE 1 TABLET BY MOUTH EVERY DAY active Not Available Not Available No t Available Vitals Date Recorded Body mass index (BMI) Body height Oxygen saturation Oxygen saturation in Arterial blood by Pulse oximetry Heart rate Body temperature Body weight Systolic And Diastolic Provider Name and Address Organization Details Last Updated DateTime 1 24.1 kg/m2 152.4 cm 99 % 99 % 86 /min 98 [degF] 87826.0 2 g 110/60 mm[Hg] Not Available [facility] 3 17:32:35 Date Recorded Body mass index (BMI) Body height Oxygen saturation Oxygen saturation in Arterial blood by Pulse oximetry Heart rate Body temperature Body weight Systolic And Diastolic Provider Name and Address Organization Details Last Updated DateTime 2 26.6 kg/m2 152.4 cm 98 % 98 % 77 /min 98 [degF] 38882.5 6 g 112/70 mm[Hg] Not Available [facility] 3 17:32:35 Date Recorded Systolic And Diastolic Provider Name and Address Organization Details Last Updated DateTime 10/16/2022 90/60 mm[Hg] JAD Mcconnell [address] [facility] [place] [address], [place], [address], [email or web address] 10/16/2022 10:05:53 Date Recorded Body height Body temperature Body mass index (BMI) Body weight Respiratory rate Oxygen saturation Oxygen saturation in Arterial blood by Pulse oximetry Heart rate Systolic And Diastolic Provider Name and Address Organization Details Last Updated DateTime 3 152.4 cm 98 [degF] 25.4 kg/m2 06580.0 1 g 16 /min 97 % 97 % 96 /min 118/70 mm[Hg] LUIS Funez [email or web address] 09:30:51 Date Recorded Body mass index (BMI) Body height Oxygen saturation Oxygen saturation in Arterial blood by Pulse oximetry Heart rate Body temperature Body weight Systolic And Diastolic Provider Name and Address Organization Details Last Updated DateTime 1 24.7 kg/m2 152.4 cm 98 % 98 % 63 /min 98.1 [degF] 30817.7 9 g 110/70 mm[Hg] Not Available [facility] 17:32:35 Social History Question Answer Notes LastModified by Organizat ion Details LastModified Time Tobacco Smoking Status Never Smoker Not Available [facility] 04/29/2022 17:31:16 What Is Your Level Of Caffeine Consumption? Moderate Coffee [id number] Information not available 04/29/2022 How Much Tobacco Do You Chew? None [id number] Information not available 04/29/2022 In The 14 Days Before Symptom Onset, Have You Had Close Contact With A Laboratory-confirm ed COVID-19 While That Case Was Ill? No [id number] Information not available 04/29/2022 In The 14 Days Before Symptom Onset, Have You Had Close Contact With A Person Who Is Under Investigation For COVID-19 While That Person Was Ill? No [id number] Information not available 04/29/2022 What Type Of Diet Are You Following? REGULAR [id number] Information not available 04/29/2022 Which Illicit Or Recreational Drugs Have You Used? None [id number] Information not available 04/29/2022 Have There Been Any Changes To Your Family Or Social Situation? No [id number] Information not available 04/29/2022 Do You Use Insect Repellent Routinely? No [id number] Information not available 04/29/2022 What Was The Date Of Your Most Recent Tobacco Screening? 10/10/2021 [id number] Information not available 04/29/2022 What Is Your Relationship Status? Single [id number].[id number] 9439 Information not available 04/29/2022 Do You Use Your Seat Belt Or Car Seat Routinely? Yes MIGRATION.[id number] Information not available 04/29/2022 Do You Have Smoke And Carbon Monoxide Detectors In Your Home? Yes MIGRATION.433335 7098 Information not available 04/29/2022 How Much Tobacco Do You Smoke? No MIGRATION.[id number] 8153 Information not available 04/29/2022 Do You Use Sunscreen Routinely? Yes MIGRATION.521817 6417 Information not available 04/29/2022 Have You Recently Traveled Abroad? No MIGRATION.425354 4279 Information not available 04/29/2022 Do You Have Any Dietary Restrictions? No MIGRATION.986895 6392 Information not available 04/29/2022 Sex: Unknown Functional Status Question Answer Note LastModified by Organizat ion Details LastModified Time Do you use any illicit or recreational drugs? No MIGRATION.[id number] Information not available 04/29/2022 Do you or have you ever used any other forms of tobacco or nicotine? No MIGRATION.632034 5365 Information not available 04/29/2022 What is your level of alcohol consumption? None MIGRATION.239927 3574 Information not available 04/29/2022 Do you or have you ever used smokeless tobacco? Never used smokeless tobacco MIGRATION.619893 3714 Information not available 04/29/2022 Are you currently employed? 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 Never used electronic cigarettes MIGRATION.673001 4230 Information not available 04/29/2022 What is your exercise level? Moderate MIGRATION.059319 4000 Information not available 04/29/2022 Mental Status None recorded. Family History Relationship Description Onset Age of this Age Resolved Age Notes LastModified by Organization Details LastModified Time Mother Rheumatoid arthritis MIGRATION.505 [id number] Not available 04/29/2022 17:31:33 Unspecified Relation Malignant tumor of colon MIGRATION.433 [id number] Not available 04/29/2022 17:31:33 Unspecified Relation Alzheimer's disease MIGRATION.797 [id number] Not available 04/29/2022 17:31:33 Unspecified Relation Malignant tumor of stomach MIGRATION.078 [id number] Not available 04/29/2022 17:31:33 Unspecified Relation Malignant tumor of intestine MIGRATION.549 [id number] Not available 04/29/2022 17:31:33 Maternal Grandmother Malignant tumor of breast MIGRATION.855 [id number] Not available 04/29/2022 17:31:33 Medical History Condition Response HEADACHES/MIGRAINES Y VARICOSITIES Y ANXIETY DISORDER Y SKIN PROBLEMS Y DEPRESSION (INCLUDING POST ) Y BACK / NECK PROBLEMS Y Gynecological History Statement/Question Response Menses Monthly Y Date of Last Pap Date of Last Mammogram 02/12/2017 Current Control Method None Date of Last Colonoscopy 01/18/2015 Date of LMP 06/28/2020 Sexually Active? Y Obstetrics History GPAL:G 3 P 0 0 0 3 Type Value Living 3 Total 3 Immunizations Vaccine Type Date Status Note Provider Nam e and Address Organization Details Recorded Time HBIG 0 completed Not Available [facility] 04/29/2022 17:35:41 TST-PPD intradermal 0 completed Not Available [facility] 04/29/2022 17:35:41 Past Encounters Encounter ID Performer Location Encounter Start Date Encounter Closed Date Diagnosis/Indication Diagnosis SNOMED-CT Code Diagnosis ICD10 Code Diagnosis Note [id number] JAD Mcconnell [facility] [place] [address] [place] [address] 07/12/2020 00:00:00 07/12/2020 11:28:06 [id number] JAD Mcconnell [facility] [place] [address] [place] [address] 12/20/2020 00:00:00 12/29/2020 21:48:15 [id number] Henry Lou MD [facility] [place] [address] [place] [address] 10/10/2021 00:00:00 10/24/2021 17:00:29 [id number] JAD Mcconnell [facility] [place] [address] [place] [address] 10/16/2022 09:23:23 10/16/2022 10:13:57 Adult health examination 975686435 Z00.00 well exam completed. . 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 Health Concerns Section Related Observation LastModified by Organization Detai ls LastModified Time None Recorded Concern Status LastModified by Organization Details LastModified Time None Recorded Advance Directives Directive None Recorded Payers Insurance Date Sequence Insurance Name Policy Number Policy Valencia Covered Member ID Valencia Member ID Guarantor Name 10/30/2022 1 [employer] [id number] Lyric Steinberg [id number] Lyric Steinberg Notes Date Note Type Note Provider Name and Address Organization Details Recorded Time 10/16/2022 text/html Anxiety/Depressi onRepo rted by PatientHPIFor quality, patient reportssymptoms worse during the day. For severity, patient reportsdenies suicidal ideations,able to maintain relationships, anddoes not interfere with activities of daily living. For duration, patient reportssymptoms lasting over 2 weeks. For onset/timing, patient reportsstill present. For context, patient reportsno major life stressors. For associated symptoms, patient reportsdenies homicidal ideations,no significant weight gain,no significant weight loss,no visual/auditory hallucinations,no delusions, andno shortness of breath. Generic HPI TemplateReported by PatientHPIFor location, (l side of head). For quality, (headaches). For severity, (more frequent). For alleviating factors, (qulipta).She says she is having more frequent headaches for the past 6 months. JAD Mcconnell [address] [place] [address], [facility] [address], [place], [address], [facility] 10/29/2022 20:29:41 OBGyn Episode No OBEpisode recorded.
--- OUTSIDE RECORDS SUMMARY | 2024-09-22 11:22 | XMS_ITS | Data Portability ---
Author Organization [facility] in Office Address [address] [place] [address] Assessment Encounter Date Assessment Date Assessment LastModified by Organization Details LastModified Time 08/31/2024 08/31/2024 I spent 60 minutes of [id number] counselling and care coordination time with the patient. This includes reviewing medical records (medical, surgical, family and social history); updating medication and allergy information in the electronic health record; and ordering labs, medications, and education materials to continue patient care. Not available 08/31/2024 22:32:42 Plan of Treatment Reminders Order Date Submit Date Provider Last Modified By Organization Details Last Modified Time Details Appointments [id number] 2024 02:00P Thaddeus lynne NP Not available Not available Not available Lab None recorded. Referral None recorded. Procedures None recorded. Surgeries None recorded. Imaging None recorded. Medication Orders Prometriu m 100 mg capsule 2024 025 [facility] #[id number], [address], [place], [id number], 08/31/2024 18:00:26 estradiol 0.5 mg/0.5 gram (0.1 %) transderm al gel packet 2024 025 [facility] #[id number], [address], [place], [id number], 08/31/2024 18:00:29 Patient TargetsNo targets recorded. Patient Instructions Encounter Date Encounter Id Patient Instructions Last Modified By Organization Details Last Modified Time 08/31/2024 [id number] Brain Fog & Cognition [facility] Not available 08/31/2024 18:00:21 [facility] Not available 08/31/2024 18:00:21 Any requested follow-up visits are listed below in the Plan of Care section. Go directly to the [facility] flight crew scheduler at [email or web address] to book a time. To schedule or modify your visit, access the [facility] portal here: [email or web address] Not available 08/31/2024 22:35:04 Brain fog: Sympt oms and Recommendations It is very common for women to experience brain fog and memory lapses during perimenopause and menopause, often caused by the changing levels of hormones at midlife and sleep disturbances resulting from other menopausal symptoms. Estrogen is neuroprotective, meaning it has an important role in the healthy regulation of brain processes such as cognition, body temperature, sexual behavior, and anxiety and depression. Accordingly, studies have shown that lower levels of estradiol (a form of estrogen) is associated with diminished cognitive performance. In addition, the night sweats and hot flashes (vasomotor symptoms) many women experience lead to poorer sleep quality and less sleep, which naturally makes it more difficult to focus during the day. Exhaustion can also increase stress, which also interferes with concentration and memory. Hormone replacement therapy (HRT) helps to mitigate these symptoms and, in turn, combat brain fog and slower cognition. And there are many other ways to keep your mind and memory sharp during this transitional period. Research supports these relatively simple lifestyle shifts: - Practice mindfulness techniques to reduce stress. Activities such as meditation, slow breathing, and yoga can help you remain present and focus on your daily tasks. - Regular exercise can reduce stress, and is also thought to increase the size of the hippocampus, the part of your brain responsible for memory and learning. - Focus on sleep hygiene, so you get more and better rest and feel less brain fog. Some basics: avoid caffeine late in the day, put down screens an hour before bed, establish a consistent bedtime routine (wake up and go to sleep at the same time every day, set up some calming wind-down rituals), and maintain a cool, calm, and quiet environment for sleep. You mentioned brain fog as a symptom this is a nonclinical term for many different things that can be happening as part of menopause and aging. This may include things like slower recall or difficulty concentrating and is not progressive. Optimizing sleep, minimizing hot flashes, optimizing nutrition, and minimizing stress and fatigue can help with this symptom. Dementia, however, is not part of usual menopause or aging. Alzheimers dementia is a degenerative brain disease that does affect some women, and does benefit from early detection and treatment. Please see a review of common warning signs at: https://www.alz.org /alzheimers-dementi a/10_signs. If you have any of these more concerning symptoms of dementia, we recommend that you get an in person assessment. Your primary care doctor can help you get officially tested, often through a referral to a neurologist. As always, let us know if you need assistance in obtaining a complete assessment. Today we reviewed options for treating common symptoms of menopause. These options include hormonal medications, non hormonal medications, integrative therapies and lifestyle modifications. Menopause symptoms vary from woman to woman. Some women get no symptoms, but others have many. Intensity and duration also vary and can last on average 5-10 years. HRT may help with many menopausal symptoms. It is FDA approved for the treatment of hot flashes, vaginal symptoms, osteoporosis, and for those in early or premature menopause. HRT is associated with relief of symptoms and improvement in bone health. When started close to the age of menopause, HRT reduces cardiovascular risk and has potential benefits for cognitive health. Here are the latest recommendations from the Menopause Society: https://menopause.o rg/patient-educatio n/menopause-topics/ hormone-therapy Hormone therapy most often involves the combination of estrogen and progestogen. As with any drug there are some potential risks associated with hormone therapy. There are concerns of associated health risks with HRT including risks related to breast cancer, uterine cancer, gallbladder disease, and dementia. Many of these concerns are related to older types of hormones that are no longer recommended today and some of these concerns differ depending on the component of hormones (i.e., estrogen vs progestogen) and the mode of delivery. Some studies have suggested that some types of HRT may increase the risk of heart attack, stroke, and blood clots. If you develop chest pain, difficulty breathing, or symptoms suggestive of a stroke please seek care immediately. Today we reviewed your personal history including specific risks and benefits of hormone therapy for you. Based on this shared decision making, we recommend HRT to you as a reasonable and helpful therapy. If you have additional questions related to health risks associated with HRT, please discuss with your clinician. Please know that HRT requires fine-tuning and an individualized approach. We ll plan to adjust your therapy if needed to address your symptoms. We will meet in 4-6 weeks to check in about your new regimen. Please reach out if you need to meet sooner. Dear Lyric, It was great to see you today! Below is a summary of the plan we decided upon together: Menopause and night sweats - You will start estradiol 0.5 mg gel each morning to replace low estrogen. - Take Prometrium 100 mg nightly to protect the uterus and improve sleep. - Expect improvement in hot flashes and sleep within the first few weeks. Sleep concerns - Progesterone often enhances deep sleep; give it several nights to take full effect. - Follow good sleep hygiene such as a consistent bedtime and a cool bedroom. Brain fog - Better sleep and balanced hormones should help clear mental haze; we will reassess at the next visit. Anxiety - Continue Lexapro 10 mg daily; once sleep stabilizes we can review if any adjustment is needed. Family colon cancer risk - We will arrange genetic testing to learn more about inherited cancer risks; the care team will contact you with local lab details. Follow up - Your next telehealth appointment is set for Thursday, October 03, 2024 at 4:00 PM. - Use the patient portal any time if questions come up or pharmacy issues arise. If you have any questions or experience any new symptoms, please do not hesitate to reach out to our office. Sincerely, Carmelina Elder NP Today we reviewed options for treating common symptoms of menopause. These options include hormonal medications, non hormonal medications, integrative therapies and lifestyle modifications. Menopause symptoms vary from woman to woman. Some women get no symptoms, but others have many. Intensity and duration also vary and can last on average 5-10 years. HRT may help with many menopausal symptoms. It is FDA approved for the treatment of hot flashes, vaginal symptoms, osteoporosis, and for those in early or premature menopause. HRT is associated with relief of symptoms and improvement in bone health. When started close to the age of menopause, HRT reduces cardiovascular risk and has potential benefits for cognitive health. Here are the latest recommendations from the Menopause Society: https://menopause.o rg/patient-educatio n/menopause-topics/ hormone-therapy Hormone therapy most often involves the combination of estrogen and progestogen. As with any drug there are some potential risks associated with hormone therapy. There are concerns of associated health risks with HRT including risks related to breast cancer, uterine cancer, gallbladder disease, and dementia. Many of these concerns are related to older types of hormones that are no longer recommended today and some of these concerns differ depending on the component of hormones (i.e., estrogen vs progestogen) and the mode of delivery. Some studies have suggested that some types of HRT may increase the risk of heart attack, stroke, and blood clots. If you develop chest pain, difficulty breathing, or symptoms suggestive of a stroke please seek care immediately. Today we reviewed your personal history including specific risks and benefits of hormone therapy for you. Based on this shared decision making, we recommend HRT to you as a reasonable and helpful therapy. If you have additional questions related to health risks associated with HRT, please discuss with your clinician. Please know that HRT requires fine-tuning and an individualized approach. We ll plan to adjust your therapy if needed to address your symptoms. We will meet in 4-6 weeks to check in about your new regimen. Please reach out if you need to meet sooner. Not available 08/31/2024 22:37:36 Reason for Referral None Reported. Problems Name Problem SNOMED Code Status Onset Date Resolution Date Notes Provider Name and Address Organization Details Recorded Time Cognitive function finding 550540554 Active 2024 Carmelina Elder , [place] [address] [place], [address] , [facility] 17:30:29 Menopausal symptom 40976868 Active 2024 Not Available [facility] 08:13:45 Difficulty sleeping 943174094 Active 2024 Not Available [facility] 08:13:45 Health education given 213892306 Active 2024 Not Available [facility] 08:13:45 Generalized anxiety disorder 66283537 Active 2024 Not Available [facility] 5 08:13:45 Problem Notes None recorded. Procedures Surgical History Date Name Laterality Status Provider Name and Address Organization Details Recorded Time 4 Date of Last [place] [address] [facility] , [facility] 08/31/2024 17:26:29 1 Date of Last [place]ammogram [place] [address] [address], [facility] 08/31/2024 17:26:29 0 Date of [place] [address] [facility] [address], [facility] 08/31/2024 17:26:29 Imaging Results None recorded. Procedure Notes None recorded. Medical Equipment None Reported. Allergies Allergen ID Allergen Name Allergen Category Reaction Reaction Severity Criticality Documentation Date Start Date Code Code System Note Provider Name and Address Organization Details Recorded Time 871139 pseudoeph edrine Not available rash Not available [facility] 08/31/20242023 8896 [place] [address] [place], [place], , [facility] 5 17:27:59 688276 Product containin g penicilli n (product) medicatio n Not available Not available Not available 08/31/2024 43759 8001 SNOMED Not Available [email or web address] External Data Service - prod 16:39:53 375366 Sudafed medicatio n rash severe Not available 08/31/202444607 2 RxNorm Not Available [email or web address] External Data Service - prod 16:39:55 Medications Name Sig Start Date Stop Date Status Note LastModified by Organization Details LastModified Time Prometrium 100 mg capsule Take 1 capsule every day by oral route at bedtime for 30 days. 2024 active Not Available Not Available Not Avai lable Lexapro 10 mg tablet active Not Available Not Available No t Available Zyrtec active Not Available Not Availa ble Not Available estradiol 0.5 mg/0.5 gram (0.1 %) transdermal gel packet Apply 1 packet every day by transderm al route for 30 days. 2024 active Not Available Not Available Not Avai lable Pro Comfort Alcohol Pads 08/31 completed Not Available Not Available Not Available Skyrizi active Not Available Not Avail able Not Available Ubrelvy 100 mg tablet active Not Available Not Available No t Available Vitals Date Recorded Body height Body mass index (BMI) Body weight Provider Name and Address Organization Details Last Updated DateTime 08/31/2024 154.94 cm 22.7 kg/m2 68042.08 g Carmelina Elder, [place] [address] [place], [address], [facility] 08/31/2024 17:27:32 Social History None recorded. Functional Status Question Answer Note LastModified by Organizat ion Details LastModified Time What is your level of alcohol consumption? Occasional Information not available 08/31/2024 Mental Status None recorded. Family History Relationship Description Onset Age of this Age Resolved Age Notes LastModified by Organization Details LastModified Time Mother Heart disease Not available 04/2024 17:26:28 Maternal Grandfather Malignant tumor of colon Not available 04/2024 17:26:28 Medical History Condition Response Pancreatitis N Allergies (Food, seasonal, environmental ) N Other N Colon Cancer N Breast Cancer N Blood Transfusion N Drug/Latex Allergies/Reactions N Lung Cancer N Dermatologic Disorders N Lung Disease N Defects or Inherited Disease N Breast Problem N Gestational Diabetes N Uterine Cancer N Hematologic disorders N Anesthesia Complications N History of STI N Deep Vein Thrombosis N Polycystic ovary syndrome N Anxiety Disorder Y Autoimmune disease N Arthritis N Polyps N Infertility N Cervical Cancer N Acid Reflux (GERD) N History of abnormal pap N Cancer N Rectal Cancer N Varicosities N Stroke N Neurologic/Epilepsy N Endometriosis N Factor 5 Leiden Deficiency N High Cholesterol N Liver Disease N Fibromyalgia N Headaches N Kidney Disease N Heart Problems N Gallbladder Disease N Migraines N Thyroid Problems N Kidney or Bladder Problems N GI Problems N Acne N Eating Disorder N Anemia N Art (IVF or FET) N Bladder Suspension/Sling N Psychiatric Illness N Ovarian Cancer N Lymphoma Cancer N Diabetes N Pulmonary (TB, Asthma) N Hepatitis/Liver Disease N Eczema N Abuse/Domestic Violence N Heart Attack N Trauma/Violence N Seizures N Protein C and/or S Deficiency N Depression/ depression N Thyroid Cancer N Heart Disease N Pulmonary Embolism N Pre-Eclampsia N Hypertension N Osteoporosis N Thrombophilias N Gynecological History Statement/Question Response Date of Last Colonoscopy 07/31/2019 Date of Last Mammogram 01/29/2021 Date of LMP 07/30/2024 Menses Monthly Y Date of Last Pap Smear 07/31/2023 Current Control Method IUD Approximate Hormone Replacement Therapy No Obstetrics History GPAL:G 3 P 0 0 0 3 Type Value Living 3 Total 3 Past Encounters Encounter ID Performer Location Encounter Start Date Encounter Closed Date Diagnosis/Indication Diagnosis SNOMED-CT Code Diagnosis ICD10 Code Diagnosis Note [id number] Carmelina Elder NP Main Office [address] [place] [address] 08/31/2024 16:39:28 09/01/2024 04:40:27 Menopausal symptom 15693181 N95.1 - Diagnosis: Menopausal and female climacteri c states- Assessment : Estradiol deficiency causing vasomotor and sleep symptoms- Plan: Discussed topical estrogen options, progestero ne requiremen ts, benefits in symptom control and bone, heart, and brain health; patient elected to start therapy- Medication s supplement s: Estradiol 0.5 mg transderma l gel daily; Prometrium 100 mg at bedtime- Follow up: Four-week telehealth visit scheduled for 03 October 2024 at 4:00 PM The patient is experienci ng significan t symptoms related to hormonal changes that impact their quality of life and ability to function profession ally and/or personally . We reviewed lifestyle modificati ons, integrativ e therapies, hormonal options as well as other medication s used to treat common menopausal symptoms. Pt was informed that, as with any drug, there are some potential risks associated with HRT. We discussed that some types of HRT may increase the risk of heart attack, stroke, and blood clots. Patient is counseled on concerning signs and symptoms and instructed to immediatel y seek care if these develop. We discussed potential health risks that may be associated with HRT including risks related to breast cancer, uterine cancer, gallbladde r disease, dementia and others. Many of these concerns are related to older types of hormones that are no longer recommende d today and some of these concerns differ depending on the component of hormones (estrogen vs progestero ne) and the mode of delivery. After review of the potential benefits of HRT, the alternativ es and the risks of therapy this patient prefers a trial of HRT. Based on this shared decision making HRT therapy will be offered. Cognitive function finding 130826432 R41.9 undefined - Diagnosis: Unspecifie d symptoms and signs involving cognitive functions and awareness - Assessment : Patient reports brain fog likely secondary to hormonal changes and insufficie nt sleep - Plan: Address underlying hormonal imbalance and sleep; reassess cognitive complaints at follow-up - Medication s supplement s: As above - Lifestyle measures: Encourage adequate hydration and regular physical activity - Follow up: Four weeks Difficulty sleeping 3013 51006 G47.9 undefined - Diagnosis: Sleep disorder, unspecifie d - Assessment : Sleep fragmentat ion related to perimenopa use and anxiety - Plan: Initiation of progestero ne expected to improve sleep; monitor response at follow-up - Medication s supplement s: Prometrium as above - Lifestyle measures: Maintain regular bedtime routine and limit late caffeine - Follow up: Four weeks Health edu cation given 995880200 N95.9 undefined - Diagnosis: Unspecifie d menopausal and perimenopa usal disorder - Assessment : Symptom complex overlaps with above but coded per visit summary - Plan: Education provided regarding natural history of perimenopa use and benefits of hormone therapy - Medication s supplement s: As above - Follow up: Four weeks Family his tory of cancer of colon 725399110 Z80.0 -genetic screening - Diagnosis: Family history of malignant neoplasm of digestive organs- Assessment : Significan t colon cancer in maternal lineage- Plan: Recommende d genetic testing for hereditary cancer syndromes; patient agreeable- Ordered diagnostic tests: Referral for multigene hereditary cancer panel blood test- Referrals: will locate some Genetics clinic near patient s residence- Follow up: Review results when available Generalize d anxiety disorder 89760616 F41.1 undefined- Diagnosis: Generalize d anxiety disorder- Assessment : Ongoing anxiety partially controlled with Lexapro- Plan: Continue Lexapro 10 mg daily; evaluate need for dose adjustment after sleep improves- Medication s supplement s: Continue Lexapro 10 mg daily- Lifestyle measures: Practice relaxation techniques at bedtime- Follow up: Four weeks -reassess reina scores next visit Health Concerns Section Related Observation LastModified by Organization Detai ls LastModified Time None Recorded Concern Status LastModified by Organization Details LastModified Time None Recorded Advance Directives Directive None Recorded Payers Insurance Date Sequence Insurance Name Policy Number Policy Valencia Covered Member ID Valencia Member ID Guarantor Name 08/28/2024 1 ARACELIS [id number] Lyric Steinberg [id number] Lyric Steinberg 08/28/2024 1 MINERVAJAQUI Roxy STONE (PPO) Lyric Steinberg [id number] Lyric Steinberg Notes Date Note Type Note Provider Name and Address Organization Details Recorded Time 08/31/2024 text/html ROS as noted in the HPI Virtual Visit AttestationModality: VideoProvider Location: Home Patient Location[place] Home Patient [place]: [place] Complaint: Two primary symptoms: Brain fog, Not sleeping Interested in discussing: Hormone replacement therapy (HRT) Vitals: Height: 61 Weight: 120 Period Changes: Irregular and flow changes MRS - Symptom Severity: Hot Flashes and Night Sweats: None Moodiness, Anxiety and Depression: Moderate Weight and Body Changes: Mild Trouble Sleeping: Moderate Period Problems: Moderate Painful Sex, Vaginal Dryness and Libido: None Brain Fog and Memory: Moderate Skin and Hair Changes: Mild Joint Pain, Bone Loss and Fracture Risk: Patient is trying to get or is currently : No Dementia/Cognitive Decline Concern: NoChief complaint: Sleep problems and brain fog History of present illness hpi: Female presenting with sleep problems, fatigue, and other perimenopausal symptoms. Sleep difficulties - Reports months-long trouble initiating sleep, frequent awakenings, and restless nights - Feels exhausted daily, requiring after-work naps to function through the evening - Notes night sweats that leave her soaked, necessitating removal of blankets mid-sleep Night sweats and temperature dysregulation - Goes to bed feeling cold, bundles up, then wakes drenched in sweat and overheated - During daytime generally feels cold even in warm weather and wears leggings in ninety-degree temperatures Anxiety and fatigue - Recently restarted Lexapro which has helped anxiety somewhat - Still experiences significant anxiety at bedtime contributing to sleep onset delay - Persistent daytime fatigue attributed to poor nocturnal rest Skin changes (acne) - New-onset chin and jawline acne despite no prior history of acne Screening history: Colonoscopy surveillance every 3 to 5 years for family history of colon cancer; last interval not specified Current medications: Lexapro 10 mg orally once daily Ubrelvy 100 mg orally as needed for migraine Zyrtec 10 mg orally once daily Albuterol inhaler 90 mcg per actuation, inhale as needed Skyrizi 150 mg injection per registered nurse post partum schedule for psoriasis Estradiol 0.5 mg transdermal gel applied once daily Prometrium 100 mg orally at bedtime Allergies: Penicillin rash Pseudoephedrine rash Sudafed severe rash Vital signs: Height 5 feet 1 inch, weight 120 pounds, BMI 22.7 Carmelina Elder, [facility] [address] [place], [address], [facility] 09/10/2024 15:10:41 OBGyn Episode No OBEpisode recorded.
--- OUTSIDE RECORDS SUMMARY | 2024-09-22 11:22 | XMS_ITS | Clinical Summary ---
Author Organization [facility] Address [address] [place] [id number] Care Team Providers Care Data Modeling Specialist Name Role Phone Unavailable Primary Care Provider Unavailabl e Social History Tobacco Use Types Packs/Day Years Used Date Smoking Tobacco: Never Assessed Comments Unknown Sex and Gender Information Value Date Recorded Sex Assigned at Not on file Legal Sex Female 5:50 PM CDT Gender Identity Not on file Sexual Orientation Not on file Plan of Treatment Health Maintenance Due Date Last Done Comments Cervical Cancer Screening Pa p Smear (Age 30 to 64) Every 3 Years 1978 Colorectal Cancer Screening Colonoscopy (10 Years) 1978 Annual Physical 1981 Hepatitis C 02/12/1996 DTaP, Tdap and Td Vaccines ( 1 - Tdap) 1997 Hepatitis B Vaccines (1 of 3 - 19+ 3-dose series) 1997 Cervical Cancer Screening Pa p with HPV Testing (Age 30 to 64) Every 5 Years 02/12/2008 Cervical Cancer Screening with HPV 02/12/2008 Mammogram Screening 2018 COVID-19 Vaccine (2023-2 5 season) 2023 Meningococcal B Vaccine Aged Out No l onger eligible based on patient's age to complete this topic Meningococcal Vaccine Aged Out No mao mitesh eligible based on patient's age to complete this topic Pneumococcal Vaccine: Pediat rics (0 to 5 Years) and At-Risk Patients (6 to 49 Years) Aged Out No longer eligible b ased on patient's age to complete this topic RSV Immunizations Under 20 Months Aged Out No longer eligible based on patient's age to complete this topic
--- OUTSIDE RECORDS SUMMARY | 2024-09-22 11:22 | XMS_ITS | Data Portability ---
Author Organization [facility] Deric Whittington Address [address] [place] [address] Care Team Providers Care Marker Delivery Name Role Phone MARIESLAVA EDMONDSON Primary Care Provider Unavailab le Assessment No assessment recorded. Plan of Treatment Reminders Order Date Submit Date Provider Last Modified By Organization Details Last Modified Time Details Appointments None recorded. Lab CMP, serum or plasma 2024 [facility]25 [email or web address], [address], [place], [address], 5 10:06:37 CBC w/ auto diff 2024 025 [email or web address], [address], [place], [address], 5 10:06:37 lipid panel, serum 2024 025 [email or web address], [address], [place], [address], 5 10:06:37 cobalamin and folate panel, serum 2024 025 [email or web address], [address], [place], [address], 5 10:06:38 vitamin D, 25-hydroxy , total, serum 2024 025 [email or web address], [address], [place], [address], 10:06:38 TSH + free T4, serum 2024 [email or web address], [address], [place], [address], 10:06:38 HbA1c (hemoglobi n A1c), blood 2024 [email or web address], [address], [place], [address], 10:06:37 Referral None recorded. Procedures colonoscop y screening (PROC) 2024 [email or web address] [facility], [address], [address], [place], [address], 12:55:48 Surgeries None recorded. Imaging MRI, cervical spine, w/o contrast 2024 [facility], [address] [facility], [address], [place], [address], 17:12:21 Medication Orders escitalopr am 10 mg tablet 2024 [id number], [address], [place], [place], [id number], 12:55:47 Patient TargetsNo targets recorded. Patient Instructions Encounter Date Encounter Id Patient Instructions Last Modified By Organization Details Last Modified Time 07/14/2024 [id number] neck: exercises [email or web address] Not available 07/14/2024 13:03:30 Reason for Referral None Reported. Problems Name Problem SNOMED Code Status Onset Date Resolution Date Notes Provider Name and Address Organization Details Recorded Time Body mass index 20-24 - normal 001975874 Active 2024 Joan James MA null, [place] - [facility] 12:15:22 Positive screening for depression on PHQ-9 (Patient Health Questionnai re 9) 9774943312563 00 Active 2024 JAD Mcconnell Attn: Lima bracnh,[address] [place] [address], [address] [place] [address] 2, [facility] 5 13:05:13 Neck pain 33518255 Active 2024 JAD Mcconnell Attn: Lima branch,[address] [place], [place], [address] [place] [address] 2, [facility] 5 13:05:14 History of polyp of colon 305703354 Active 2024 JAD Mcconnell Attn: [place] branch,[address] [place], [place], [address] [place] [address] 2, [facility] 5 13:05:15 Fatigue 10156189 Active 2024 JAD Mcconnell Attn: Isabelljer branch,[address] [place], [place], [address] [place] [address] 2, [facility] 5 13:05:19 Long-term current use of drug therapy 791197551 Active 2024 JAD Mcconnell Attn: Isabelljer branch,[address] [place], [place], [address] [place] [address] 2, [facility] 5 13:05:21 Generalized anxiety disorder 82240507 Active 2024 JAD Mcconnell Attn: Isabelljer branch,[address] [place], [place], [address] [place] [address] 2, [facility] 5 13:05:24 Problem Notes None recorded. Procedures Surgical History Date Name Laterality Status Provider Name and Address Organization Details Recorded Time 4 excision of vein completed Joan James MA [facility] 07/14/2024 12:17:03 Imaging Results None recorded. Procedure Notes None recorded. Medical Equipment None Reported. Allergies Allergen ID Allergen Name Allergen Category Reaction Reaction Severity Criticality Documentation Date Start Date Code Code System Note Provider Name and Address Organization Details Recorded Time 18991007 Product containin g penicilli n (product) medicatio n Not available Not available Not available 07/14/2024 28213 8001 SNOMED YAS Stewart, [facility] 12:13:55 Medications Name Sig Start Date Stop Date Status Note LastModified by Organization Details LastModified Time azithromyci n 250 mg tablet TAKE 2 TABLETS BY MOUTH FOR 1 DAY THEN TAKE 1 TABLET BY MOUTH DAILY FOR 4 DAYS active Not Available Not Available No t Available sulfamethox azole 800 mg-trimetho prim 160 mg tablet TAKE 1 TABLET BY MOUTH TWICE DAILY UNTIL ALL TAKEN 07/14 completed Not Available Not Available Not Available escitalopra m 10 mg tablet TAKE 1 TABLET BY MOUTH EVERY DAY active Not Available Not Available No t Available ProAir HFA 90 mcg/actuati on aerosol inhaler Inhale 2 puffs every 4 hours by inhalatio n route. active Not Available Not Available No t Available Skyrizi 150 mg/mL subcutaneou s pen injector Inject by subcutane ous route. active Not Available Not Available No t Available Vitals Date Recorded Respiratory rate Provider Name a nd Address Organization Details Last Updated DateTime 07/14/2024 16 /min JAD Mcconnell Attn: [place], [address], [facility] 07/30/2024 11:38:22 Date Recorded Body weight Body mass index (BMI) Body height Oxygen saturation Oxygen saturation in Arterial blood by Pulse oximetry Heart rate Systolic And Diastolic Provider Name and Address Organization Details Last Updated DateTime 5 76210.8 6 g 23.2 kg/m2 154.94 cm 99 % 99 % 72 /min 116/78 mm[Hg] Joan James MA [facility] 12:19:38 Social History Question Answer Notes LastModified by Organization Details LastModified Time Tobacco Smoking Status Never Smoker YAS Stewart, [facility] 07/14/2024 13:02:59 Do You Have An Advance Directive? No Information not available 07/14/2024 Are You Blind Or Do You Have Difficulty Seeing? Yes Contacts Information not available 07/14/2024 What Is Your Level Of Caffeine Consumption? Occasional Coffee/soda Occasionally Information not available 07/14/2024 In The 14 Days Before Symptom Onset, Have You Had Close Contact With A Laboratory-confi rmed COVID-19 While That Case Was Ill? No Information not available 07/14/2024 In The 14 Days Before Symptom Onset, Have You Had Close Contact With A Person Who Is Under Investigation For COVID-19 While That Person Was Ill? No Information not available 07/14/2024 Have You Been To An Area Known To Be High Risk For COVID-19? No Information not available 07/14/2024 Are You Deaf Or Do You Have Serious Difficulty Hearing? No Information not available 07/14/2024 What Type Of Diet Are You Following? REGULAR Information not available 07/14/2024 Are There Any Guns Present In Your Home? No Information not available 07/14/2024 What Was The Date Of Your Most Recent Tobacco Screening? 07/14/2024 Information not available 07/14/2024 Do You Use Your Seat Belt Or Car Seat Routinely? Yes Information not available 07/14/2024 Do You Have Smoke And Carbon Monoxide Detectors In Your Home? Yes Information not available 07/14/2024 Do You Use Sunscreen Routinely? Yes Face Information not available 07/14/2024 Has Tobacco Cessation Counseling Been Provided? No Information not available 07/14/2024 Sex: Female Functional Status Question Answer Note LastModified by Organizat ion Details LastModified Time Do you use any illicit or recreational drugs? No Information not available 07/14/2024 Do you or have you ever used any other forms of tobacco or nicotine? No Information not available 07/14/2024 What is your level of alcohol consumption? Occasional Information not available 07/14/2024 Are you currently employed? Yes Information not available 07/14/2024 Are you able to care for yourself independently? 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 None Information not available 07/14/2024 Mental Status None recorded. Family History Relationship Description Onset Age of this Age Resolved Age Notes LastModified by Organization Details LastModified Time Father Alcoholism [email or web address] Not availa ble 07/14/2024 13:01:59 Sister Alcoholism tcarterma Not availa ble 07/14/2024 13:01:59 Sister Hypertensive disorder tcarterma Not available 2024 13:02:30 Sister Hypercholest erolemia tcarterma Not available 2024 13:02:42 Brother Alcoholism tcarterma Not avail able 07/14/2024 13:01:59 Brother Diabetes mellitus tcarterma Not available 2024 13:02:09 Brother Hypertensive disorder tcarterma Not available 2024 13:02:30 Mother Heart disease tcarterma Not available 2024 13:02:16 Medical History Condition Response Coronary Artery Disease N Other N High Blood Pressure N Atrial Fibrillation N Thyroid Problems N Kidney or Bladder Problems N Depression Y COPD N Blood Clots N GI Problems N Have you had a mammogram in the last yea r? N Skin Problems Y Anemia N Heart Attack (AK) N Anxiety Disorder Y Diabetes N Muscle, Joint, or Bone Problems N Seizures/Epilepsy N Have you had a colonoscopy in the last 1 0 years? N Acid Reflux (GERD) N Cancer N Stroke N Asthma Y Allergies N Have you had a PSA blood test in the las t year? N High Cholesterol N Hepatitis N Liver Disease N Headaches Y Osteoporosis N Heart Failure N Immunizations Vaccine Type Date Status Note Provider Nam e and Address Organization Details Recorded Time MMR 5 completed Not Available [facility] 07/14/2024 12:09:09 Td (adult), 2 Lf tetanus toxoid, preservative free, adsorbed 3 completed Not Available [facility] 07/14/2024 12:09:09 MMR 5 completed Not Available [facility] 07/14/2024 12:09:09 Tdap 0 completed Not Available [facility] 07/14/2024 12:09:09 Hep B, adult 0 completed Not Available [facility] 07/14/2024 12:09:09 Past Encounters Encounter ID Performer Location Encounter Start Date Encounter Closed Date Diagnosis/Indication Diagnosis SNOMED-CT Code Diagnosis ICD10 Code Diagnosis Note [id number] Henry Lou MD [facility] Ramiro Cassidy [address] [place] [address] 07/14/2024 12:08:11 07/14/2024 13:37:29 Body mass index 20-24 - normal 049594466 Z68.23 23.2 Generalize d anxiety disorder 71985857 F41.1 Restart Lexapro 10 mg daily for generalize d anxiety disorder. Patient has done well on this in the past Adult heal th examination 133977679 Z00.00 Annual wellness exam completed with all labs ordered for fasting evaluation Cholesterol screening 27 7644041 Z13.220 Fasting lipids due Diabetes m ellitus screening 060041833 Z13.1 A1c screening due Long-term current use of drug therapy 286433266 Z79.899 CBC and CMP labs do Fatigue 45679223 R53.83 Check vitamins B12 folate vitamin-D and thyroid testing for some underlying fatigue History of polyp of colon 693139406 Z86.0100 Patient is due for follow-up colonoscop y screening with history of polyps Neck pain 95233903 M54.2 Chronic cervicalgi a issues likely related 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 We will see if insurance will approve an MRI of the C-spine without contrast and also home exercises have been given. He has already done muscle relaxer in the past anti-infla mmatories Tylenol etc.. Positive s creening for depression on PHQ-9 (Patient Health Questionnaire 9) 7540381977 04625 Z13.31 positive screening. lexapro is restarted today for management . Health Concerns Section Related Observation LastModified by Organization Detai ls LastModified Time None Recorded Concern Status LastModified by Organization Details LastModified Time None Recorded Advance Directives Directive N: Payers Insurance Date Sequence Insurance Name Policy Number Policy Valencia Covered Member ID Valencia Member ID Guarantor Name 07/31/2024 1 ARACELIS [id number] Lyric Steinberg [id number] Lyric Steinberg Notes Date Note Type Note Provider Name and Address Organization Details Recorded Time 07/15/19 25 text/htm l Anxiety/DepressionReported by PatientHPIFor quality, patient reportsincreased anxiety. For associated symptoms, patient reportsanxietyandanxiety with muscle tension. For severity, patient reportsdenies suicidal ideations,able to maintain relationships, anddoes not interfere with activities of daily living. For duration, patient reportsfrequentandsymptoms lasting over 2 weeks. For onset/timing, patient reportsstill present. For context, patient reportsno major life stressors. For modifying factors, patient reportssocial support.Patient would like to get her Lexapro restarted that she was on for several years in the past and it worked well. Patient also report some fatigue and some neck pain. 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 JAD Mcconnell Attn: Accounting,[address] [place], [address], [place] - [facility] 07/30/2024 11:41:21
--- OUTSIDE RECORDS SUMMARY | 2024-09-22 11:22 | XMS_ITS | Continuity of Care Document ---
Author Name [facility] Address [address] [place] [address] Organization [facility] Care Team Providers Care Freelance Court Reporter Name Role Phone [facility] Unavailable Unavailable Allergies, Adverse Reactions, Alerts Substance Category Reaction Severity Reaction type Status Date Reported Comments Source penicillins Assertion Drug allergy Active [facility] Sudafed Assertion rash, peeling skin Drug allergy Active [facility]
--- OUTSIDE RECORDS SUMMARY | 2024-09-22 11:22 | XMS_ITS | Clinical Summary ---
Author Organization [facility] Care Team Providers Care Combat Systems Engineer Name Role Phone Unavailable Primary Care Provider Unavailabl e Social History Tobacco Use Types Packs/Day Years Used Date Smoking Tobacco: Never Assessed Comments Unknown Sex and Gender Information Value Date Recorded Sex Assigned at Not on file Legal Sex Female 9:48 AM WIRE BENDER Gender Identity Not on file Sexual Orientation Not on file Plan of Treatment Health Maintenance Due Date Last Done Comments Hepatitis C Virus (HCV) Screening 1978 Pap Smear 1999 Cervical Cancer Screening (CCS) 02/12/2008 HPV/Cotest 02/12/2008 Hepatitis B Immunization (2 of 3 - 19+ 3-dose series) 02/12/2010 01/15/2010 Cologuard 2023 Colonoscopy 2023 Colorectal Cancer Screening 2023 Immunochemical Fecal Occult Blood 2023 SARS-COV-2 Immunization ( season) 2023 Influenza Immunization (#1) 2024 Respiratory Syncytial Virus (RSV) Immunization (Adult) (1 - 1-dose 75+ series) 2053 DTaP/Tdap/Td Immunization Discontinued 2009, 10/01/1992 TdaP Immunization Completed 01/15/2010 Human Papillomavirus (HPV) Immunization Aged Out No longer eligible based on patient's age to complete this topic Meningococcal Immunization (ACWY) Aged Out No longer eligible based on patient's age to complete this topic Pneumococcal Immunization Combined Aged Out No longer eligible based on patient's age to complete this topic Rotavirus Immunization Aged Out No lo nger eligible based on patient's age to complete this topic
--- OUTSIDE RECORDS SUMMARY | 2024-09-22 11:22 | XMS_ITS | Clinical Summary ---
Author Organization [facility] Address [address] [place] [address] Care Team Providers Care Toe Puller Name Role Phone Laura Wilcox Primary Care Pr ovider Allergies Active Allergy Reactions Criticality Noted Date Comments Penicillins Pseudoephedrine Rash High 03/08/2023 Medications cetirizine (ZyrTEC) 10 mg capsule 10 mg. 0 0 6 Active albuterol HFA (PROAIR HFA) 90 mcg/actuation inhaler inhale 2 puff by inhalation route every 4 - 6 hours as needed 0 Inhaler 0 6 Active ibuprofen (ibuprofen) 200 mg tab/cap take 1 capsule by oral route every 6 hours as needed 0 0 6 Active docusate sodium (COLACE) 100 mg capsule take 1 capsule (100MG) by oral route every day at bedtime as needed 30 0 7 Active Additional Information Patient not taking.Reported on 09/28/2022 senna-docusate (PERICOLACE) 8.6-50 mg Take up to 4 tablets by mouth 2 times daily 90 0 7 Active Additional Information Patient not taking.Reported on 09/28/2022 Qulipta 60 mg tablet Take 1 tablet by mouth daily 3 Active escitalopram (LEXAPRO) 10 mg tablet Take 1 tablet (10 mg total) by mouth daily 3 Active ALPRAZolam (XANAX) 0.5 mg tablet Take 1 tablet (0.5 mg total) by mouth 2 (two) times a day 2 tablet 3 Active Additional Information Patient not taking.Reported on 12/11/2022 ALPRAZolam (XANAX) 0.5 mg tablet Take 1 tablet (0.5 mg total) by mouth 2 (two) times a day 2 tablet 3 Active Additional Information Patient not taking.Reported on 03/08/2023 ALPRAZolam (XANAX) 0.5 mg tablet Take 1 tablet before leaving your house. Take a 2nd tablet on arrival to office. 2 tablet 4 Active Additional Information Patient not taking.Reported on 06/21/2023 azelastine (ASTELIN) 137 mcg (0.1 %) nasal spray Administer 2 sprays into each nostril 2 (two) times a day Active calcipotriene-b etamethasone (Enstilar) 0.005-0.064 % foam Active fluticasone propion-salmete roL (ADVAIR DISKUS) 250-50 mcg/dose diskus inhaler Inhale 1 puff twice a day by inhalation route. 3 Active ubrogepant (UBRELVY ORAL) Activ e valACYclovir (VALTREX) 500 mg tablet Active cyclobenzaprine (FLEXERIL) 5 mg tabletIndicatio ns:Acute left-sided low back pain without sciatica Take 1 tablet (5 mg total) by mouth 3 (three) times a day as needed for muscle spasms for up to 5 days 15 tablet 4 Active Active Problems Problem Noted Date Diagnosed Date Varicose veins of leg with pain, left 05/28/2023 Assessment & Plan (06/25/2023 10:52 AM CDT): Successful ablation of left great saphenous vein with stab phlebectomies. Continue compression therapy. Can follow up as needed. 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 Preprocedural symptoms have resolved and her stab phlebectomy sites are healed. Postop day 3 and 4 weeks venous duplex reveals an ablated right great saphenous vein with no acute DVT. Patient continues to complain of discomfort to her right lower extremity with varicose veins. Plan: We will schedule patient for a left EVLT with stab phlebectomies. Discussed the risks with the patient patient voices understanding of these risks. -continue utilizing compression therapy. Assessment & Plan (09/29/2022 7:37 AM CDT): Bilateral lower extremity CEAP C3 disease symptomatic varicosities. Risks benefits alternatives to left GSV ablation and stab phlebectomies discussed, risks including bleeding, infection, DVT/PE, thermal injury to the skin, and need for further surgery. She wished to proceed. We will start with the left lower extremity staged by the right lower extremity 4-6 weeks later. Assessment & Plan (08/14/2022 1:49 PM CDT): Bilateral lower extremity CEAP C3 disease with symptomatic varicosities despite compression therapy. I have written a prescription for new stockings, reflux pen maker ordered for further evaluation. Pending this she may need a GSV ablation and stab phlebectomies New daily persistent headache 10/24/2021 Mild major depression 10/09/2021 Migraine 09/19/2021 Acute exacerbation of chronic obstructive airway s disease 05/12/2021 Reactive airway disease 05/12/2021 Surgical History Surgery Date Site/Laterality Comments OTHER SURGICAL HISTORY ganglion cyst removal left 06/02/16 Medical History Medical History Date Comments Asthma Asthma Hx Other Medical colonoscopy 200 0 and 2015 Hx Other Medical bunionectomy Hx Other Medical Headache, migra ine Family History Medical History Relation Name Comments Alcohol abuse Other Family history of Alcoholism; Arthritis Other Family history of Arthritis; Cancer Other Family history of Cancer, unknown; Diabetes type II Other Family hist ory of Diabetes mellitus type 2; Heart disease Other Family history of Heart problems; Hypertension Other Family history of Hypertension; Seizures Other Family history of Seizure disorder; Relation Name Status Comments Other Social History Tobacco Use Types Packs/Day Years Used Date Smoking Tobacco: Never Smokeless Tobacco: Never Tobacco Cessation:Counseling Given: Not Answered Comments Unknown Sex and Gender Information Value Date Recorded Sex Assigned at Not on file Legal Sex Female 6:51 PM FIBERGLASS BOAT FINISHER Gender Identity Not on file Sexual Orientation Not on file Obstetrics History Last Filed Vital Signs Vital Sign Reading Time Taken Comments Blood Pressure 100/62 10/04/2023 4:40 PM CDT Pulse 75 10/04/2023 4:40 PM CDT Temperature 37.3 C (99.1 F) 10/04/2023 4:40 PM CDT Respiratory Rate 16 10/04/2023 4:40 PM CDT Oxygen Saturation 98% 10/04/2023 4:40 PM CDT Inhaled Oxygen Concentration - - Weight 59 kg (130 lb) 10/04/2023 4:40 PM CDT Height 154.9 cm (5' 1) 10/04/2023 4:40 PM CDT Body Mass Index 24.56 10/04/2023 4:40 PM CDT Plan of Treatment Health Maintenance Due Date Last Done Comments Breast Cancer Screening-Mammogram 1978 Cervical Cancer Screening 1978 Colon Cancer Screening-Colonoscopy 1978 Depression Screening 1978 Regular Well Visit/Exam 18-64 02/12/1996 Pneumococcal vaccine <65 (1 of 2 - PCV) 1997 DTaP/Tdap/Td Vaccine (2 - Td or Tdap) 01/16/2020 01/15/2010, 10/01/1992 Influenza Vaccine (#1) 2024 Hepatitis B Screening Completed 08/27/2023 , 01/15/2010, 03/01/2009 Hepatitis C Screening Completed 08/27/2023 HPV Vaccines Aged Out No longer eligi ble based on patient's age to complete this topic Procedures Procedure Name Priority Date/Time Associated Diagnosis Comments HEPATITIS C ANTIBODY Routine 08/27/2023 1:12 PM CDT Actinic keratosis Lentigo simplex Other seborrheic keratosis from Last 3 Months or Most Recently Relevant to Health Maintenance Results * Hepatitis C antibody Blood Blood, Venous (08/27/2023 1:12 PM CDT) Hep C Ab Nonreactive Nonreactive Comment: Interpretive Data Nonreactive: Antibodies to HCV not detected. Does NOT exclude the possibility of recent exposure to HCV. Equivocal: Equivocal for HCV antibodies. Supplemental molecular testing will be automatically performed to determine infection status in accordance with current CDC screening recommendations. Reactive: Positive for HCV antibodies. This may represent current or past HCV infection. Supplemental molecular testing will be automatically performed to determine current infection status in accordance with current CDC screening recommendations. Interpretive data was last revised on 2019. Blood Venous blood specimen / Unknown 08/27/2023 1:12 PM CDT 08/27/2023 7:46 PM CDT Jerald TORY JACINTA - 08/27/2023 8:32 PM CDT Corie Mon NP LAB MICROBIOLOGY - GENERAL ORDER TERESA Final Result [facility] [id number] Department [place] [address] from Last 3 Months or Most Recently Relevant to Health Maintenance Insurance [employer] PPO Care Teams Toe Puller Relationship Specialty Start Date End Date Laura Wilcox PA PCP - General 06/02/16
--- OUTSIDE RECORDS SUMMARY | 2024-09-22 11:22 | XMS_ITS | Referral Summary ---
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 Gender Identity Not on file Sexual Orientation Not on file Last Filed Vital Signs Vital Sign Reading [...] 10/04/2023 4:40 PM CDT Plan of Treatment Not on file Procedures Procedure Name Priority Date/Time Associated Diagnosis [...] 1:12 PM CDT 08/27/2023 7:46 PM CDT Narrative TORY WORKMAN - 08/27/2023 8:32 PM CDT Corie Mon NP LAB MICROBIOLOGY - GENERAL ORDER TERESA Final Result TORY [id number] Department [place] [address] from Last 3 Months or Most Recently Relevant to Health Maintenance Insurance [facility] [employer] PPO Care Teams Table Maker Relationship Specialty Start Date End Date Laura Wilcox PA PCP - General 06/02/16
[2024-09-22 13:12] LABS: Hematocrit 36.6 % (37.0-47.0); Hemoglobin 11.9 g/dL (12.0-15.0); Immature Granulocyte Percent A 0.6 % (0-0.5); Lymphocytes Absolute Auto 1.14 K/mm3 (0.9-3.2); Mean Corpuscular HGB Conc 32.5 g/dl (32-36); Mean Corpuscular Hemoglobin 30.3 pg (26-34); Mean Corpuscular Volume 93.1 fl (80-100); Nucleated Red Blood Cells Absolute Auto 0.000 K/mm3 (0.0-0.012); Nucleated Red Blood Cells Perc 0.0 % (0.0-0.2); Platelet Count Result 209 k/mm3 (150-375); Red Blood Count 3.93 M/mm3 (4.2-5.4); White Blood Count 5.2 K/mm3 (4.5-10.0)
[2024-09-22 13:46] LABS: Alanine Aminotransferase 26 U/L (6-35); Albumin Level 4.3 g/dL (3.5-5.1); Alkaline Phosphatase 39 U/L (38-126); Anion Gap 7 mmol/L (4-12); Aspartate Amino Transferase 37 U/L (14-36); Bilirubin,Total 0.6 mg/dL (0.2-1.3); Blood Urea Nitrogen 16 mg/dL (7-17); Calcium 9.3 mg/dL (8.4-10.2); Carbon Dioxide 24 mmol/L (22-30); Chloride 106 mmol/L (98-107); Cholesterol 182 mg/dL (0-200); Estimated Glomerular Filt Rate > 60; Glucose 81 mg/dL (65-110); HDL Direct 64 mg/dL; Potassium 4.3 mmol/L (3.4-5.0); Sodium 137 mmol/L (137-145); Total Protein 7.0 g/dL (6.3-8.2); Triglycerides 58 mg/dL (<150)
[2024-09-22 14:26] LABS: Thyroid Stimulating Hormone 1.300 uIU/mL (0.465-4.680)
[2024-09-22 15:02] LABS: Vitamin B12 896.0 pg/mL (239-931)
[2024-09-22 15:06] LABS: Hemoglobin A1C 5.4 % (<5.7)
[2024-09-22 16:09] LABS: Hepatitis B Surface Antigen Negative (Negative)
[2024-09-22 16:26] LABS: Hepatitis B Surface Anti Res Negative
[2024-09-22 18:59] LABS: Free T4 Free Thyroxine 0.87 ng/dL (0.78-2.19)
[2024-09-23 07:09] LABS: Hep B Core Ab, Total Negative (Negative)
== END 2024-09-22 11:17 | disposition home or self-care (01) ==
LOC: ANHGOSHLAB 11:18
PROVIDERS: PCP Chiropractor; Visit Provider Physician Assistant
DX: Z13.220 Encounter for screening for lipoid disorders (principal); Z13.1 Encounter for screening for diabetes mellitus; Z79.899 Other long term (current) drug therapy; R53.83 Other fatigue
CPT/HCPCS: 36415; 80053; 80061; 82306; 82607; 82746; 83036; 84439; 84443; 85025; 86480; 86704; 86706; 86803; 87340